=== PATIENT | female | born 1970 | race American Indian/Alaskan Native ===

== ENCOUNTER 2016-09-24 14:32 | Inpatient (IN) | payer OTHER ==
[2016-09-24] MEDS ORDERED: Albuterol-Ipratrop 3 mg / 0.5 (3 ml) UD INH STA (14:57)
--- NOTE | 2016-09-24 15:05 | ED PDOC ---
HPI: SOB/CHF/COPD Time Seen by Provider: 09/24/16 14:45 Chief Complaint (Nursing): Shortness Of Breath Chief Complaint (Provider): Shortness of Breath, Palpitations History Per: Patient History/Exam Limitations: no limitations Onset/Duration Of Symptoms: Mins (45 mins prior to arrival) Current Symptoms Are (Timing): Still Present Associated Symptoms: denies: Fever, Chest Pain Additional Complaint(s): Tera Marquez, a 46 year old female, who has a PMHx of diabetes presents to the ED complaining of shortness of breath and palpitations. The patient states that her symptoms started 45 minutes prior to arrival. In addition to that, the patient reports that she had a bunionectomy 3 weeks ago.The patients left lower extremity is in a cast and is also still swollen since surgery. Denies chest pain, cough and fever. PMD: Aditya Lopes Past Medical History Reviewed: Historical Data, Nursing Documentation, Vital Signs Vital Signs: Last Vital Signs Temp 98.0 F 09/24/16 17:42 Pulse 114 H 09/24/16 17:42 Resp 24 09/24/16 17:42 BP 155/83 H 09/24/16 17:42 Pulse Ox 96 09/24/16 17:59 - Medical History PMH: Diabetes - Surgical History Other surgeries: Bunionectomy - Family History Family History: States: Unknown Family Hx - Social History Current smoker - smoking cessation education provided: No - Home Medications Home Medications: Ambulatory Orders Medication Instructions Recorded Ibuprofen [Motrin Tab] 800 mg PO TID PRN 09/24/16 diaZEpam [Valium] 5 mg PO HS 09/24/16 - Allergies Allergies/Adverse Reactions: Allergies Allergy/AdvReac Type Severity Reaction Status Date / Time No Known Allergies Allergy Verified 09/24/16 14:33 Wells Criteria for PE - Wells Criteria for Pulmonary Embolism Clinical Signs and Symptoms of DVT: Yes P.E is #1 Diagnosis, or Equally Likely: Yes Heart Rate >100: Yes Immobilization at least 3 days;Surgery previous 4 weeks: Yes Previous, objectively diagnosed PE or DVT: No Hemoptysis: No Malignancy w/treatment within 6 months, or palliative: No Total Score: 7.0 Review of Systems ROS Statement: Except As Marked, All Systems Reviewed And Found Negative Constitutional: Negative for: Fever Cardiovascular: Positive for: Palpitations. Negative for: Chest Pain Respiratory: Positive for: Shortness of Breath. Negative for: Cough Physical Exam - Reviewed Nursing Documentation Reviewed: Yes Vital Signs Reviewed: Yes - Physical Exam Appears: Positive for: Non-toxic, No Acute Distress Head Exam: Positive for: ATRAUMATIC, NORMOCEPHALIC Skin: Positive for: Normal Color, Warm, Dry Eye Exam: Positive for: Normal appearance, EOMI, PERRL ENT: Positive for: Normal ENT Inspection Neck: Positive for: Normal, Supple Cardiovascular/Chest: Positive for: Regular Rate, Rhythm, Chest Non Tender. Negative for: Tachycardia Respiratory: Positive for: Normal Breath Sounds. Negative for: Wheezing, Respiratory Distress Gastrointestinal/Abdominal: Positive for: Normal Exam, Soft. Negative for: Tenderness Back: Positive for: Normal Inspection. Negative for: L CVA Tenderness, R CVA Tenderness Extremity: Positive for: Normal ROM, Swelling (Left lower extremity is still swollen since surgery.), Other (Left lower extremity is in a cast.). Negative for: Tenderness, Deformity Neurologic/Psych: Positive for: Alert, Oriented - Laboratory Results Result Diagrams: 09/24/16 15:00 09/24/16 15:00 - ECG Interpretation Of ECG: NSR @ 99, S1Q3T3. O2 Sat by Pulse Oximetry: 96 (RA) Pulse Ox Interpretation: Normal - Radiology X-Ray: Read By Radiologist X-Ray Interpretation: No Acute Disease - CT Scan/US CT chest Other Rad Studies (CT/US): Radiology Report Reviewed (Extensive pulmonary embolic disease/ thrombus. Although there are strands of thrombus the in the proximal main pulmonary arteries the bulk of the emboli reside in lobar and segmental branches with thrombus completely occluding the right lower lobe pulmonary artery. No evidence of pulmonary infarction. Findings highly suggestive of thrombus in the right atrium. If clinically indicated echocardiography would confirm this finding. ) Doppler ultrasound Other Rad Studies (CT/US): Radiology Report Reviewed (Findings consistent with left popliteal DVT. No evidence of right lower extremity DVT.) - Physician Consult Information Time Consulting Physican Contacted: 16:30 Physician Contacted: Arash Greco Outcome Of Conversation: Lovenox, admit to ICU. - Critical Care Total Time (In Min): 30 Medical Decision Making Medical Decision Makin:45 Initial Impression: 46 year old female presenting with chest pain and palpitations. Initial Plan: * CT Ango chest * EKG * CMP * Troponin * Upreg * Udip * CBC * D-dimer * PTT * Prothrombin time * CXR * Glucose, blood, POC * Urinalysis * Reevaluation 16:[address] Mcgee Dopplers ordered. __ Scribe Attestation Documented by Marisela Ventura acting as a scribe for Paula Hoff MD. Provider Attestation All medical record entries made by the Scribe were at my direction and personally dictated by me. I have reviewed the chart and agree that the record accurately reflects my personal performance of the history, physical exam, medical decision making, and the department course for this patient. I have also personally directed, reviewed, and agree with the discharge instructions and disposition. Disposition - Clinical Impression Clinical Impression: Bilateral pulmonary embolism, DVT (deep venous thrombosis) - Patient ED Disposition Is Patient to be Admitted: Yes - Disposition Disposition Time: 16:36 Condition: CRITICAL - Pt Status Changed To: Hospital Disposition Of: Inpatient - Admit Certification Admit to Inpatient:: After my assessment, the patient will require hospitalization for at least two midnights. This is because of the severity of symptoms shown, intensity of services needed, and/or the medical risk in this patient being treated as an outpatient. - POA Present On Arrival: Deep Vein Thrombosis / PE
[2016-09-24] MEDS ORDERED: Albuterol-Ipratrop 3 mg / 0.5 (3 ml) UD ONE (15:07)
[2016-09-24 15:13] LABS: BASO # 0.1 K/uL (0.0-0.2); BASO % 0.8 % (0.0-2.0); EOS # 0.4 K/uL (0.0-0.7); EOS % 3.8 % (0.0-4.0); HEMATOCRIT 39.8 % (34.0-47.0); LYMPH # 2.8 K/uL (1.0-4.3); LYMPH % 30.2 % (20.0-40.0); MEAN CORPUSCULAR HEMOGLOBIN 28.5 pg (27.0-31.0); MEAN CORPUSCULAR HGB CONC 33.6 g/dL (33.0-37.0); MEAN PLATELET VOLUME 9.1 fl (7.2-11.7); MONO # 0.6 K/uL (0.0-0.8); MONO % 6.9 % (0.0-10.0); NEUT # 5.4 K/uL (1.8-7.0); NEUT % 58.3 % (50.0-75.0); NRBC % 0.1 % (0.0-0.0); RED CELL DISTRIBUTION WIDTH 13.3 % (11.5-14.5); WHITE BLOOD COUNT 9.3 K/uL (4.8-10.8)
[2016-09-24 15:19] LABS: ALB/GLOB RATIO 1.1 (1.0-2.1); ALKALINE PHOSPHATASE 96 U/L (38-126); ALT/SGPT 37 U/L (9-52); AST/SGOT 32 U/L (14-36); BILIRUBIN,TOTAL 0.4 mg/dl (0.2-1.3); BLOOD UREA NITROGEN 7 mg/dl (7-17); CALCIUM 9.9 mg/dL (8.4-10.2); CARBON DIOXIDE 27 mmol/L (22-30); CHLORIDE 102 mmol/L (98-107); GFR AFRICAN-AMERICAN > 60; GLUCOSE,RANDOM 239 mg/dL (65-105); POTASSIUM 3.8 MMOL/L (3.6-5.0); SODIUM 141 mmol/l (132-148); TOTAL PROTEIN 8.4 G/DL (6.3-8.2)
[2016-09-24 15:44] LABS: PARTIAL THROMBOPLASTIN TIME 22.9 SECONDS (23.3-32.5)
[2016-09-24] MEDS ORDERED: Sodium Chloride 0.9% 50 ML IV ONE (15:55)
[2016-09-24] MEDS ORDERED: Iodixanol 320 MG/ML 100 ML BOTTLE IV ONE (15:55)
[2016-09-24] MEDS ORDERED: Enoxaparin 120 mg Syringe SC STA (16:31)
--- NOTE | 2016-09-24 16:36 | CT ---
PROCEDURE: CT Chest with contrast (Pulmonary Angiogram) HISTORY: CP, palpitations, 3 weeks s/p bunion surgery COMPARISON: None available. TECHNIQUE: Axial computed tomography images were obtained of the chest in the pulmonary arterial phase of enhancement. Coronal and sagittal reformatted images were created and reviewed. Intravenous contrast dose: 95 cc Visipaque 320 Mean Hounsfield unit values in the main pulmonary artery: 281.62 Radiation dose: Total exam DLP = 366.46 mGy-cm. This CT exam was performed using one or more of the following dose reduction techniques: Automated exposure control, adjustment of the mA and/or kV according to patient size, and/or use of iterative reconstruction technique. FINDINGS: PULMONARY ARTERIES: The bulk of the pulmonary emboli identified on the current study reside in the periphery of both main pulmonary arteries as well as lobar and segmental branches. Thrombus completely occludes right lower lobe pulmonary artery. Segmental thrombus in the left lower lobe pulmonary artery noted. Additional pulmonary embolism identified in the right upper and right middle lobe segmental pulmonary arteries as well as upper lobe and lingula are branches on the left Main pulmonary artery measures 2.9 cm. AORTA: No acute findings. No thoracic aortic aneurysm. LUNGS: No evidence of pulmonary infarction despite the extent of occlusive and nonocclusive pulmonary artery emboli. PLEURAL SPACES: Unremarkable. No effusion or pneuomothorax. HEART: Unremarkable. No cardiomegaly. No significant pericardial effusion. LYMPH NODES: No lymphadenopathy. BONES, CHEST WALL: Unremarkable. No fracture or destructive lesion OTHER FINDINGS: Unremarkable. IMPRESSION: Extensive pulmonary embolic disease/ thrombus. Although there are strands of thrombus the in the proximal main pulmonary arteries the bulk of the emboli reside in lobar and segmental branches with thrombus completely occluding the right lower lobe pulmonary artery. No evidence of pulmonary infarction. Findings highly suggestive of thrombus in the right atrium. If clinically indicated echocardiography would confirm this finding. Communication of results: Study completed at 16:12. Results discussed verbally at 16:21. I discussed the findings and reviewed the case Dr. Craig Attending physician in the emergency department
[2016-09-24 16:40] LABS: RBC URINE 2 /hpf (0-3); URINE BILIRUBIN NEGATIVE (NEGATIVE); URINE BLOOD NEGATIVE (NEGATIVE); URINE COLOR YELLOW (YELLOW); URINE GLUCOSE (UA) 150 mg/dL (Normal); URINE KETONE NEGATIVE (NEGATIVE); URINE LEUKOCYTE ESTERASE NEG Leu/uL (Negative); URINE PROTEIN 30 mg/dL (NEGATIVE); URINE UROBILINOGEN 0.2-1.0 mg/dL (0.2-1.0); WBC URINE 1 /hpf (0-5)
[2016-09-24 16:42] LABS: URINE BACTERIA FEW (<OCC)
--- NOTE | 2016-09-24 17:19 | RAD ---
HISTORY: SOB COMPARISON: No prior. FINDINGS: LUNGS: No active pulmonary disease. PLEURA: No significant pleural effusion identified, no pneumothorax apparent. CARDIOVASCULAR: Normal. OSSEOUS STRUCTURES: No significant abnormalities. VISUALIZED UPPER ABDOMEN: Normal. OTHER FINDINGS: None. IMPRESSION: No active disease.
--- NOTE | 2016-09-24 17:53 | US ---
PROCEDURE: Bilateral lower extremity venous duplex Doppler. HISTORY: PE COMPARISON: None available. TECHNIQUE: Bilateral common femoral, superficial femoral, popliteal and posterior tibial veins were evaluated. Flow was assessed with color Doppler, compressibility, assessment of phasic flow and augmentation response. FINDINGS: COMMON FEMORAL VEIN: Right CFV: Unremarkable. Left CFV: Unremarkable. SUPERFICIAL FEMORAL VEIN: Right SFV: Unremarkable. Left SFV: Unremarkable. POPLITEAL VEIN: Right Popliteal: Unremarkable. Left Popliteal: Noncompressible left popliteal veins contains filling defects suspicious for DVT. POSTERIOR TIBIAL VEIN: Right PTV: Unremarkable. Left PTV: Unremarkable. OTHER FINDINGS: None. IMPRESSION: Findings consistent with left popliteal DVT. No evidence of right lower extremity DVT.
--- NOTE | 2016-09-24 18:24 | CP.PCM.CON ---
History of Present Illness - History of Present Illness History of Present Illness: 46 year old female with PMHx including diabetes was seen at bedside. Patient states that 3 weeks ago she had left bunion surgery with Dr. Beltrán. She has been ambulating in a CAM walker. She states that she has been short of breath for about a week. She states that her symptoms felt like her previous asthma attacks and has been using her inhaler with some relief. Patient spoke to Dr. Beltrán today who sent her to the ED for evaluation. She admits to shortness of breath, but denies any left calf tenderness. denies n/v/f/c. Past Patient History - Past Social History Smoking Status: Never Smoked - CARDIAC Hx Cardiac Disorders: No - PULMONARY Hx Respiratory Disorders: Yes - NEUROLOGICAL Hx Neurological Disorder: No - HEENT Hx HEENT Problems: Yes - RENAL Hx Chronic Kidney Disease: No - ENDOCRINE/METABOLIC Hx Endocrine Disorders: Yes - HEMATOLOGICAL/ONCOLOGICAL Hx Blood Disorders: No - INTEGUMENTARY Hx Dermatological Problems: No - MUSCULOSKELETAL/RHEUMATOLOGICAL Hx Musculoskeletal Disorders: No - GASTROINTESTINAL Hx Gastrointestinal Disorders: No - GENITOURINARY/GYNECOLOGICAL Hx Genitourinary Disorders: No - PSYCHIATRIC Hx Psychophysiologic Disorder: No - SURGICAL HISTORY Hx Surgeries: Yes Hx Cholecystectomy: Yes Hx Orthopedic Surgery: Yes (RIGHT KNEE ACL REPAIR X 2) Other/Comment: BUNIONECTOMY. 3 SINUS SX Meds Allergies/Adverse Reactions: Allergies Allergy/AdvReac Type Severity Reaction Status Date / Time No Known Allergies Allergy Verified 09/24/16 14:33 Physical Exam - Constitutional Appears: Non-toxic - Extremities Exam Additional comments: dressing clean, dry, intact to LLE PT pulse palpable b/l CFT < 3 seconds to all digits - Neurological Exam Neurological exam: Alert, Oriented x3 - Psychiatric Exam Psychiatric exam: Normal Affect, Normal Mood Results - Vital Signs Recent Vital Signs: Last Vital Signs Temp 98.0 F 09/24/16 17:42 Pulse 114 H 09/24/16 17:42 Resp 24 09/24/16 17:42 BP 155/83 H 09/24/16 17:42 Pulse Ox 96 09/24/16 18:01 - Labs Result Diagrams: 09/24/16 15:00 09/24/16 15:00 Assessment & Plan - Assessment and Plan (Free Text) Assessment: 46 year old female 3 weeks s/p left bunion surgery with PE and L poplietal DVT Plan: patient examined and evaluated discussed with attending Dr. Beltrán CT reviewed- PE noted LE US reviewed- L popliteal DVT noted dressing left c/d/i to [facility] podiatry will continue to follow patient while in house
[2016-09-24 18:42] VITALS: BMI 41.3
--- NOTE | 2016-09-24 19:36 | CP.CCUPN ---
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 Initial symptoms occurred 1 week ago and patient felt it may be due to an asthma exacerbation and found relief with inhaler use. Denies any h/o exertional chest discomfort or exertional dyspnea. PMH included 5 yr h/o diet-controlled DM II and HTN. But admits to being noncompliant and has been on Losartan in the past. She denies any recent URI, cough, fevers or chills, sweats, palpitations, dizziness. Recent meds only include Valium and Motrin for foot discomfort. Afebrile, 155/83, HR 114, RR 24, 96% SPO2 on nasal cannula ROS: as above, no other pertinent negs or positives on 10 system review. 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 Otherwise, all nursing and historical notes reviewed, no new pertinent data relevant to current problems. No other distress noted: EXAM- HEENT: no icterus, pupils equal and reactive NECK: no visible JVD, supple, carotids equal upstroke bilat/no bruits CHEST: decreased BS bases, no wheezes HEART: regular, distant, S1S2, no murmur audible, no rubs. ABD: soft, no increased distention, no focal tenderness, no HSM. BS hypoactive , EXT: LLE unable to be assesses, Left foot in boot dressing, no cords or calf tenderness on R. Distal Pulses intact bilat. NEURO: no gross focal motor deficits SKIN: no rashes LABS: WBC= 9.3 HGB= 13.4 PLTs= 292K INR= 1.00, PTT = 22.9 DDimer = 5.95 Na= 141 K= 3.8 HCO3= 27 BUN/Cr= 7/0.7 BS= 239 Trop neg at 0.[address] results reviewed and discussed with ER MD. EKG: sinus 99/min, poor R wave progression anteriorly. MAJOR PROBLEMS NOW: 1. Sub-Acute Pulmonary Thromboembolism 2. s/p Left Bunion Surgery 3. Uncontrolled Hypertension, r/o Anxiety Disorder 4. DM II 5. Morbid Obesity PLAN: 1. Probable acute event occurred one week ago and now having recurrent embolic event, exacerbated by activity. Initial Trops negative. Start Therapeutic Lovenox, no need for IV heparin or thrombolytics, nor any consideration for clot extraction. Hemodynamics and oxygenation wholly stable and acceptable. 2. Monitor BP trends, patient admits she is anxious and may be stress- related. Similar situation relates to episodes of hyperglycemia. Monitor ac hs blood glucose, maintain normoglycemia s tolerated. Will treat for any sustained MAP elevations above 110. 3. Oral anticoagulation in AM as per PMD. 4. Podiatry f/u. 5. Albuterol inh prn.
[2016-09-24] MEDS ORDERED: Alum-Mag Hydrox-Simethicone Susp (30 mL) PO PRN (19:37)
[2016-09-24] MEDS ORDERED: Albuterol-Ipratrop 3 mg / 0.5 (3 ml) UD INH PRN (19:37)
[2016-09-24] MEDS: Pantoprazole 40 mg EC Tab PO SCH (20:00)
[2016-09-24] MEDS: Enoxaparin 120 mg Syringe SC SCH (21:21)
[2016-09-25 05:36] LABS: BASO # 0.1 K/uL (0.0-0.2); EOS # 0.4 K/uL (0.0-0.7); EOS % 4.1 % (0.0-4.0); HEMATOCRIT 39.6 % (34.0-47.0); LYMPH # 3.4 K/uL (1.0-4.3); LYMPH % 38.9 % (20.0-40.0); MEAN CORPUSCULAR HEMOGLOBIN 28.3 pg (27.0-31.0); MEAN CORPUSCULAR HGB CONC 32.9 g/dL (33.0-37.0); MEAN PLATELET VOLUME 8.7 fl (7.2-11.7); MONO # 0.7 K/uL (0.0-0.8); MONO % 7.8 % (0.0-10.0); NEUT # 4.2 K/uL (1.8-7.0); NEUT % 48.2 % (50.0-75.0); RED CELL DISTRIBUTION WIDTH 12.9 % (11.5-14.5); WHITE BLOOD COUNT 8.7 K/uL (4.8-10.8)
[2016-09-25 05:40] LABS: ALB/GLOB RATIO 1.1 (1.0-2.1); ALKALINE PHOSPHATASE 93 U/L (38-126); ALT/SGPT 34 U/L (9-52); AST/SGOT 28 U/L (14-36); BILIRUBIN,TOTAL 0.4 mg/dl (0.2-1.3); BLOOD UREA NITROGEN 7 mg/dl (7-17); CALCIUM 9.9 mg/dL (8.4-10.2); CARBON DIOXIDE 28 mmol/L (22-30); CHLORIDE 104 mmol/L (98-107); CHOLESTEROL 260 mg/dL (0-199); GFR AFRICAN-AMERICAN > 60; GLUCOSE,RANDOM 194 mg/dL (65-105); SODIUM 140 mmol/l (132-148); TOTAL PROTEIN 7.4 G/DL (6.3-8.2)
[2016-09-25 06:06] LABS: PARTIAL THROMBOPLASTIN TIME 32.3 SECONDS (23.3-32.5)
[2016-09-25 06:10] LABS: THYROID STIMULATING HORMONE 3.86 mIU/ML (0.46-4.68)
--- NOTE | 2016-09-25 08:32 | CP.PCM.PN ---
Subjective - Date & Time of Evaluation Date of Evaluation: 09/25/16 Time of Evaluation: 08:30 - Subjective Subjective: 46 year old female seen at bedside 3 weeks s/p left bunion surgery with PE and L poplietal DVT. She admits to shortness of breath, and mild chest tightness, but denies any other acute event overnight. She denies any left calf tenderness or pain in her lower extremities. denies n/v/f/c. Objective - Vital Signs/Intake and Output Vital Signs (last 24 hours): Temp Pulse Resp BP Pulse Ox 98.2 F 83 19 125/74 94 L 09/25/16 08:00 09/25/16 08:00 09/25/16 08:00 09/25/16 08:00 09/25/16 08:00 Intake and Output: 09/25/16 09/25/16 06:59 18:59 Intake Total 400 Output Total 900 Balance -500 - Medications Medications: Current Medications Al Hydrox/Mg Hydrox/Simethicone (Maalox Plus 30 Ml) 30 ml PO Q6 PRN PRN Reason: Indigestion / Heartburn Last Admin: 09/24/16 21:21 Dose: 30 ml Albuterol/Ipratropium (Duoneb 3 Mg/0.5 Mg (3 Ml) Ud) 3 ml INH RQ4 PRN PRN Reason: Shortness of Breath Diazepam (Valium) 5 mg PO HS PRN PRN Reason: Anxiety Last Admin: 09/24/16 21:10 Dose: 5 mg Enoxaparin Sodium (Lovenox) 120 mg SC Q12 YESY PRN Reason: Protocol Last Admin: 09/24/16 21:21 Dose: 120 mg Ibuprofen (Motrin Tab) 800 mg PO Q8 PRN PRN Reason: Pain, moderate (4-7) Pantoprazole Sodium (Protonix Ec Tab) 40 mg PO DAILY YESY Last Admin: 09/24/16 20:00 Dose: 40 mg Zolpidem Tartrate (Ambien) 5 mg PO HS PRN PRN Reason: Sleep Last Admin: 09/24/16 23:39 Dose: 5 mg - Labs Labs: 09/25/16 05:00 09/25/16 05:00 PT 11.5 SECONDS (9.6-11.2) H 09/25/16 05:00 INR 1.11 (0.92-1.08) H 09/25/16 05:00 APTT 32.3 SECONDS (23.3-32.5) D 09/25/16 05:00 - Constitutional Appears: Well, Non-toxic, No Acute Distress - Extremities Exam Additional comments: dressing clean, dry, intact to LLE PT pulse palpable b/l CFT < 3 seconds to all digits - Neurological Exam Neurological Exam: Alert, Awake, Oriented x3 - Psychiatric Exam Psychiatric exam: Normal Affect, Normal Mood Assessment and Plan - Assessment and Plan (Free Text) Assessment: 46 year old female 3 weeks s/p left bunion surgery with PE and L poplietal DVT Plan: patient examined and evaluated discussed with attending Dr. Beltrán CT reviewed- PE noted LE US reviewed- L popliteal DVT noted dressing left c/d/i to [facility] podiatry will continue to follow patient while in house
[2016-09-25] MEDS: Pantoprazole 40 mg EC Tab PO SCH (09:00)
[2016-09-25] MEDS: Enoxaparin 120 mg Syringe SC SCH ×2 (09:00→21:55)
--- NOTE | 2016-09-25 10:18 | CARD ---
APPROVED REPORT EKG Measurement Heart [id number] <Conclusion> Normal sinus rhythm Poor progression of R waves Abnormal ECG
--- NOTE | 2016-09-25 11:39 | CP.CCUPN ---
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 Afebrile, 125/73, HR 84, RR 19, 94% SPO2 on nasal cannula ROS: as above, no other pertinent negs or positives on 10 system review. 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 Otherwise, all nursing and historical notes reviewed, no new pertinent data relevant to current problems. No other distress noted: EXAM- HEENT: no icterus, pupils equal and reactive NECK: no visible JVD, supple, carotids equal upstroke bilat/no bruits CHEST: decreased BS bases, no wheezes HEART: regular, distant, S1S2, no murmur audible, no rubs. ABD: soft, no increased distention, no focal tenderness, no HSM. BS hypoactive , EXT: LLE unable to be assesses, Left foot in boot dressing, no cords or calf tenderness on R. Distal Pulses intact bilat. NEURO: no gross focal motor deficits SKIN: no rashes LABS: WBC= 8.7 HGB= 13.0 PLTs= 288K INR= 1.11, PTT = 32.3 DDimer = 5.95 Na= 140 K= 4.0 HCO3= 28 BUN/Cr= 7/0.7 BS= 194 Trop #1 neg at 0.11 Trop #2 pos= 0.33 MAJOR PROBLEMS NOW: 1. Sub-Acute / Acute Pulmonary Thromboembolism 2. s/p Left Bunion Surgery 3. Uncontrolled Hypertension, r/o Anxiety Disorder 4. DM II 5. Morbid Obesity PLAN: 1. Urgent ECHO now as per Cardio to assess for any RV abnormalities which would change mgmt with consideration for thrombolytics. 2. Continue Lovenox Q12H for now. 3. BP levels have improved without acute need for antihypertensive therapy mgmt. 4. If no thrombolytics today as per Cardio, would start PO AC meds and transfer to stepdown bed.
--- NOTE | 2016-09-25 14:04 | CP.PCM.CON ---
History of Present Illness - History of Present Illness History of Present Illness: Pulmonary consult for PE. 46 y/o F, came to [facility] on 09/24/16 to be evaluated for acute onset of moderate to severe SOB on DOA, associated to L side chest tightness and palpitations. Pt using nebulizer inhaler at home with mild relief. Worsening symptoms: SOB with exertion and at rest. Hx of Bunionectomy surgery [address] Johnson, Pt mentioned that after surgery has been active and non-sedentary. Aggravating factor; increasing symptoms with movements, Pt in non compliance with meds. Pt denied: Fever, chills, cough, CP, back pain, n/v/d, previous Hx of PE or DVT. sick contact, recent travel. PMHx: Asthma, DMII, HTN, Hypercholesterolemia, S/P L Bunion Surgery one week ago. Chest CT showed: Extensive Pulmonary embolism b/L, extending into the lobar branches, thrombus occluding RLL PA. Ext U/S: Left Popliteal DVT. EKG: Normal sinus rhythm. Review of Systems - Constitutional Constitutional: Other (negative) - EENT Eyes: Other (negative) Ears: Other (negative) Nose/Mouth/Throat: Other (negative) - Cardiovascular Cardiovascular: Other (negative) - Respiratory Respiratory: Dyspnea, Dyspnea on Exertion - Gastrointestinal Gastrointestinal: Other (negative) - Genitourinary Genitourinary: Other (negative) - Musculoskeletal Musculoskeletal: Other (negative) - Integumentary Integumentary: Swelling (L foot) - Neurological Neurological: Other (negative) - Psychiatric Psychiatric: Other (negative) - Endocrine Endocrine: Other (overweight) - Hematologic/Lymphatic Hematologic: Other (negative) Past Patient History - Past Medical History & Family History Past Medical History?: Yes Pertinent Family History: Hx of DMII - Past Social History Smoking Status: Never Smoked Alcohol: Occasional Drugs: Denies Home Situation {Lives}: Alone - CARDIAC Hx Cardiac Disorders: Yes Hx Hypercholesterolemia: Yes Hx Hypertension: Yes - PULMONARY Hx Respiratory Disorders: Yes Hx Asthma: Yes - NEUROLOGICAL Hx Neurological Disorder: No - HEENT Hx HEENT Problems: Yes - RENAL Hx Chronic Kidney Disease: No - ENDOCRINE/METABOLIC Hx Endocrine Disorders: Yes Hx Diabetes Mellitus Type 2: Yes - HEMATOLOGICAL/ONCOLOGICAL Hx Blood Disorders: No - INTEGUMENTARY Hx Dermatological Problems: No - MUSCULOSKELETAL/RHEUMATOLOGICAL Hx Musculoskeletal Disorders: No - GASTROINTESTINAL Hx Gastrointestinal Disorders: No - GENITOURINARY/GYNECOLOGICAL Hx Genitourinary Disorders: No - PSYCHIATRIC Hx Psychophysiologic Disorder: No - SURGICAL HISTORY Hx Surgeries: Yes Hx Cholecystectomy: Yes Hx Orthopedic Surgery: Yes (RIGHT KNEE ACL REPAIR X 2) Other/Comment: BUNIONECTOMY. 3 SINUS SX - ANESTHESIA Hx Anesthesia: Yes Hx Anesthesia Reactions: No Meds Allergies/Adverse Reactions: Allergies Allergy/AdvReac Type Severity Reaction Status Date / Time No Known Allergies Allergy Verified 09/24/16 14:33 - Medications Medications: Current Medications Al Hydrox/Mg Hydrox/Simethicone (Maalox Plus 30 Ml) 30 ml PO Q6 PRN PRN Reason: Indigestion / Heartburn Last Admin: 09/24/16 21:21 Dose: 30 ml Albuterol/Ipratropium (Duoneb 3 Mg/0.5 Mg (3 Ml) Ud) 3 ml INH RQ4 PRN PRN Reason: Shortness of Breath Last Admin: 09/25/16 11:25 Dose: 3 ml Diazepam (Valium) 5 mg PO HS PRN PRN Reason: Anxiety Last Admin: 09/24/16 21:10 Dose: 5 mg Enoxaparin Sodium (Lovenox) 120 mg SC Q12 YESY PRN Reason: Protocol Last Admin: 09/25/16 09:00 Dose: 120 mg Ibuprofen (Motrin Tab) 800 mg PO Q8 PRN PRN Reason: Pain, moderate (4-7) Pantoprazole Sodium (Protonix Ec Tab) 40 mg PO DAILY YESY Last Admin: 09/25/16 09:00 Dose: 40 mg Zolpidem Tartrate (Ambien) 5 mg PO HS PRN PRN Reason: Sleep Last Admin: 09/24/16 23:39 Dose: 5 mg Physical Exam - Constitutional Appears: No Acute Distress - Head Exam Head Exam: NORMAL INSPECTION - Eye Exam Eye Exam: PERRL - ENT Exam ENT Exam: Normal Oropharynx - Neck Exam Neck exam: Positive for: Normal Inspection - Respiratory Exam Respiratory Exam: NORMAL BREATHING PATTERN - Cardiovascular Exam Cardiovascular Exam: REGULAR RHYTHM - GI/Abdominal Exam GI & Abdominal Exam: Normal Bowel Sounds, Soft - Extremities Exam Additional comments: Dressing Left foot. - Back Exam Back exam: NORMAL INSPECTION - Neurological Exam Neurological exam: Alert, Oriented x3 - Psychiatric Exam Psychiatric exam: Normal Mood - Skin Skin Exam: Warm Results - Vital Signs Recent Vital Signs: Last Vital Signs Temp 98.1 F 09/25/16 12:00 Pulse 82 09/25/16 12:00 Resp 33 H 09/25/16 12:00 BP 124/77 09/25/16 12:00 Pulse Ox 96 09/25/16 12:00 reviewed Javier - Labs Result Diagrams: 09/28/16 06:30 09/28/16 06:30 Labs: Laboratory Results - last 24 hr 09/25/16 09/25/16 09/25/16 05:00 05:00 05:00 WBC 8.7 RBC 4.61 Hgb 13.0 Hct 39.6 MCV 86.0 MCH 28.3 MCHC 32.9 L RDW 12.9 Plt Count 288 MPV 8.7 Neut % (Auto) 48.2 L Lymph % (Auto) 38.9 [place] % (Auto) 7.8 Eos % (Auto) 4.1 H Baso % (Auto) 1.0 Neut # 4.2 Lymph # 3.4 [place] # 0.7 Eos # 0.4 Baso # 0.1 PT 11.5 H INR 1.11 H APTT 32.3 D Sodium 140 Potassium 4.0 Chloride 104 Carbon Dioxide 28 Anion Gap 12 BUN 7 Creatinine 0.7 Est GFR ( Amer) > 60 Est GFR (Non-Af Amer) > 60 Random Glucose 194 H Hemoglobin A1c Lactic Acid Calcium 9.9 Total Bilirubin 0.4 AST 28 ALT 34 Alkaline Phosphatase 93 Troponin I 0.3340 H* Total Protein 7.4 Albumin 3.8 Globulin 3.6 Albumin/Globulin Ratio 1.1 Triglycerides 183 H Cholesterol 260 H LDL Cholesterol Direct 172 H HDL Cholesterol 44 TSH 3rd Generation 3.86 09/25/16 09/25/16 05:00 05:00 WBC RBC Hgb Hct MCV MCH MCHC RDW Plt Count MPV Neut % (Auto) Lymph % (Auto) [place] % (Auto) Eos % (Auto) Baso % (Auto) Neut # Lymph # [place] # Eos # Baso # PT INR APTT Sodium Potassium Chloride Carbon Dioxide Anion Gap BUN Creatinine Est GFR ( Amer) Est GFR (Non-Af Amer) Random Glucose Hemoglobin A1c 10.3 H Lactic Acid 1.8 Calcium Total Bilirubin AST ALT Alkaline Phosphatase Troponin I Total Protein Albumin Globulin Albumin/Globulin Ratio Triglycerides Cholesterol LDL Cholesterol Direct HDL Cholesterol TSH 3rd Generation reviewed J.[email or web address] - EKG Data EKG comments: reviewed J.[email or web address] - Imaging and Cardiology Chest x-ray Status: Report reviewed by me (Javier) CT scan - chest Status: Report reviewed by me (Javier) Venous US Status: Report reviewed by me (Javier) Assessment & Plan (1) Bilateral pulmonary embolism Status: Acute Priority: High Comment: B/L P/E, thrombus occluding RLL PA (2) Deep venous thrombosis of left popliteal vein Status: Acute (3) S/P bunionectomy Status: Acute Priority: High (4) Asthma Status: Chronic Priority: Medium - Assessment and Plan (Free Text) Plan: Agree with management, NC 2 L/M, JESSEE Garcia Lovenox , begin Eliquis. f/u Echo. ICU time: 65 minutes. - Date & Time Date: 09/25/16 Time: 10:50
--- NOTE | 2016-09-25 14:26 | CP.PCM.HP ---
History of Present Illness - History of Present Illness History of Present Illness: 46 female with PMHx of diet-controlled DM II and HTN presented to ED due to SOB and palpitations. Patient has recent history of left bunion surgery 3 weeks ago though has been active and non sedentary. Denied chest pain, cough and fever. Patient was found to have extensive pulmonary embolic disease/thrombus via CTA. Patient denies history of blood coagulopathy in family. Patient was seen and examined this morning. States improvement of dyspnea and palpitations have resolved. No other events overnight. Present on Admission - Present on Admission Any Indicators Present on Admission: No Review of Systems - Review of Systems All systems: reviewed and no additional remarkable complaints except (mentioned in HPI) Past Patient History - Past Medical History & Family History Past Medical History?: Yes - Past Social History Smoking Status: Never Smoked - CARDIAC Hx Cardiac Disorders: No - PULMONARY Hx Respiratory Disorders: Yes - NEUROLOGICAL Hx Neurological Disorder: No - HEENT Hx HEENT Problems: Yes - RENAL Hx Chronic Kidney Disease: No - ENDOCRINE/METABOLIC Hx Endocrine Disorders: Yes - HEMATOLOGICAL/ONCOLOGICAL Hx Blood Disorders: No - INTEGUMENTARY Hx Dermatological Problems: No - MUSCULOSKELETAL/RHEUMATOLOGICAL Hx Musculoskeletal Disorders: No - GASTROINTESTINAL Hx Gastrointestinal Disorders: No - GENITOURINARY/GYNECOLOGICAL Hx Genitourinary Disorders: No - PSYCHIATRIC Hx Psychophysiologic Disorder: No - SURGICAL HISTORY Hx Surgeries: Yes Hx Cholecystectomy: Yes Hx Orthopedic Surgery: Yes (RIGHT KNEE ACL REPAIR X 2) Other/Comment: BUNIONECTOMY. 3 SINUS SX - ANESTHESIA Hx Anesthesia: Yes Hx Anesthesia Reactions: No Meds Allergies/Adverse Reactions: Allergies Allergy/AdvReac Type Severity Reaction Status Date / Time No Known Allergies Allergy Verified 09/24/16 14:33 Physical Exam - Constitutional Appears: Well, Non-toxic, No Acute Distress - Head Exam Head Exam: ATRAUMATIC, NORMAL INSPECTION, NORMOCEPHALIC - Eye Exam Eye Exam: EOMI, Normal appearance - ENT Exam ENT Exam: Mucous Membranes Moist, Normal Exam - Neck Exam Neck exam: Positive for: Normal Inspection - Respiratory Exam Respiratory Exam: Decreased Breath Sounds (bilateral bases), Clear to Auscultation Bilateral, NORMAL BREATHING PATTERN - Cardiovascular Exam Cardiovascular Exam: REGULAR RHYTHM, RRR, +S1, +S2 - GI/Abdominal Exam GI & Abdominal Exam: Normal Bowel Sounds, Soft. absent: Tenderness Additional comments: obese - Extremities Exam Extremities exam: Positive for: normal inspection (left foot with boot dressing from bunionectomy, cdi). Negative for: calf tenderness, tenderness - Neurological Exam Neurological exam: Alert, Oriented x3 - Psychiatric Exam Psychiatric exam: Normal Affect, Normal Mood - Skin Skin Exam: Dry, Intact, Normal Color, Warm Results - Vital Signs Recent Vital Signs: Last Vital Signs Temp 98.1 F 09/25/16 12:00 Pulse 82 09/25/16 12:00 Resp 33 H 09/25/16 12:00 BP 124/77 09/25/16 12:00 Pulse Ox 96 09/25/16 12:00 - Labs Result Diagrams: 09/25/16 05:00 09/25/16 05:00 Labs: Laboratory Results - last 24 hr 09/25/16 09/25/16 09/25/16 05:00 05:00 05:00 WBC 8.7 RBC 4.61 Hgb 13.0 Hct 39.6 MCV 86.0 MCH 28.3 MCHC 32.9 L RDW 12.9 Plt Count 288 MPV 8.7 Neut % (Auto) 48.2 L Lymph % (Auto) 38.9 [place] % (Auto) 7.8 Eos % (Auto) 4.1 H Baso % (Auto) 1.0 Neut # 4.2 Lymph # 3.4 [place] # 0.7 Eos # 0.4 Baso # 0.1 PT 11.5 H INR 1.11 H APTT 32.3 D Sodium 140 Potassium 4.0 Chloride 104 Carbon Dioxide 28 Anion Gap 12 BUN 7 Creatinine 0.7 Est GFR ( Amer) > 60 Est GFR (Non-Af Amer) > 60 Random Glucose 194 H Hemoglobin A1c Lactic Acid Calcium 9.9 Total Bilirubin 0.4 AST 28 ALT 34 Alkaline Phosphatase 93 Troponin I 0.3340 H* Total Protein 7.4 Albumin 3.8 Globulin 3.6 Albumin/Globulin Ratio 1.1 Triglycerides 183 H Cholesterol 260 H LDL Cholesterol Direct 172 H HDL Cholesterol 44 TSH 3rd Generation 3.86 09/25/16 09/25/16 05:00 05:00 WBC RBC Hgb Hct MCV MCH MCHC RDW Plt Count MPV Neut % (Auto) Lymph % (Auto) [place] % (Auto) Eos % (Auto) Baso % (Auto) Neut # Lymph # [place] # Eos # Baso # PT INR APTT Sodium Potassium Chloride Carbon Dioxide Anion Gap BUN Creatinine Est GFR ( Amer) Est GFR (Non-Af Amer) Random Glucose Hemoglobin A1c 10.3 H Lactic Acid 1.8 Calcium Total Bilirubin AST ALT Alkaline Phosphatase Troponin I Total Protein Albumin Globulin Albumin/Globulin Ratio Triglycerides Cholesterol LDL Cholesterol Direct HDL Cholesterol TSH 3rd Generation Assessment & Plan (1) Bilateral pulmonary embolism Assessment and Plan: Symptoms improving. Monitored in ICU c/w Lovenox treatment dose Cardiology on board, appreciate input (recommends urgent ECHO) Positive troponins Pulmonary on board, appreciate input Management per senior interactive developer, appreciate input Patient will need PO anti-coagulation in future Status: Acute (2) DVT (deep venous thrombosis) Assessment and Plan: Will obtain genetic studies at this time, patient did have surgery 3 wks ago though states was not sedentary Status: Acute (3) S/P bunionectomy Assessment and Plan: dressing CDI s/p 3 wks ago Podiatry consulted, appreciate recommendations Status: Acute (4) Diabetes type 2, uncontrolled Assessment and Plan: Not on meds, Serum Glucose elevated, pending HgbA1c Diabetic diet Status: Acute
--- NOTE | 2016-09-25 14:44 | CP.PCM.CON ---
History of Present Illness - History of Present Illness History of Present Illness: I was asked to see patient by Dr. Moreno. Patient is a 46 year old female with a PMH HTN, hypercholesterolemia, who presents with dyspnea. The patient had L bunion surgery about 3 weeks ago, and has not been fully mobile. The patient developed dyspnea about one week ago which was progressive. She was found to have a L popliteal vein DVT. The patient was also found to have a saddle embolus and bilateral PE. She was admitted to the ICU and started on anticaogulant therapy. The patient ws evaluated this morning, and is asymptomatic. She denies chest pain or dyspnea, and is saturating normally on room air. Review of Systems - Constitutional Constitutional: absent: As Per HPI, Anorexia, Chills, Daytime Sleepiness, Excessive Sweating, Fatigue, Fever, Frequent Falls, Headache, Increased Appetite , Lethargy, Malaise, Night Sweats, Snoring, Sleep Apnea, Weight Gain, Weight Loss, Weakness, Other - EENT Eyes: absent: As Per HPI, Blind Spots, Blurred Vision, Change in Vision, Decreased Night Vision, Diplopia, Discharge, Dry Eye, Exophthalmos, Floaters, Irritation, Itchy Eyes, Loss of Peripheral Vision, Pain, Photophobia, Requires Corrective Lenses, Sees Flashes, Spots in Vision, Tunnel Vision, Other Visual Disturbances, Loss of Vision, Other Ears: absent: As Per HPI, Decreased Hearing, Ear Discharge, Ear Pain, Tinnitus, Abnormal Hearing, Disequilibrium, Dizziness, Other Nose/Mouth/Throat: absent: As Per HPI, Epistaxis, Nasal Congestion, Nasal Discharge, Nasal Obstruction, Nasal Trauma, Nose Pain, Post Nasal Drip, Sinus Pain, Sinus Pressure, Bleeding Gums, Change in Voice, Dental Pain, Dry Mouth, Dysphagia, Halitosis, Hoarsness, Lip Swelling, Mouth Lesions, Mouth Pain, Odynophagia, Sore Throat, Throat Swelling, Tongue Swelling, Facial Pain, Neck Pain, Neck Mass, Other - Cardiovascular Cardiovascular: absent: As Per HPI, Acrocyanosis, Chest Pain, Chest Pain at Rest , Chest Pain with Activity, Claudication, Diaphoresis, Dyspnea, Dyspnea on Exertion, Edema, Irregular Heart Rhythm, Pain Radiating to Arm/Neck/Jaw, Leg Edema, Leg Ulcers, Lightheadedness, Orthopnea, Palpitations, Paroxysmal Nocturnal Dyspnea, Pedal Edema, Radiating Pain, Rapid Heart Rate, Slow Heart Rate, Syncope, Other - Respiratory Respiratory: absent: As Per HPI, Cough, Dyspnea, Hemoptysis, Dyspnea on Exertion , Wheezing, Snoring, Stridor, Pain on Inspiration, Chest Congestion, Excessive Mucous Production, Change in Mucous Color, Pain with Coughing, Other - Gastrointestinal Gastrointestinal: absent: As Per HPI, Abdominal Pain, Belching, Bloating, Change in Bowel Habits, Change in Stool Character, Coffee Ground Emesis, Constipation, Cramping, Diarrhea, Dyspepsia, Dysphagia, Early Satiety, Excessive Flatus, Fecal Incontinence, Heartburn, Hematemesis, Hematochezia, Loose Stools, Melena, Nausea, Odynophagia, Temesmus, Vomiting, Other - Genitourinary Genitourinary: absent: As Per HPI, Change in Urinary Stream, Difficulty Urinating, Dysuria, Flank Pain, Hematuria, Pyuria, Nocturia, Urinary Incontinence, Urinary Frequency, Urinary Hesitance, Urinary Urgency, Voiding Freq/Small Amts, Freq UTI, Hx Renal/Bladder Calculi, Hx /Renal Surgery, Bladder Distension, Other - Musculoskeletal Musculoskeletal: absent: As Per HPI, Abnormal Gait, Arthralgias, Atrophy, Back Pain, Deformity, Joint Swelling, Limited Range of Motion, Loss of Height, Muscle Cramps, Muscle Weakness, Myalgias, Neck Pain, Numbness, Radiating Pain into Limb, Stiffness, Tingling, Other - Integumentary Integumentary: absent: As Per HPI, Acne, Alopecia, Bleeding Lesions, Change in Hair, Change in Nails, Change in Pigmentation, Changing Lesions, Dry Skin, Erythema, Furuncle, Hirsutism, Lesions, New Lesions, Non-Healing Lesions, Photosensitivity, Pruritus, Rash, Skin Pain, Skin Ulcer, Sores, Striae, Swelling , Unusual Bruising, Wounds, Jaundice, Other - Neurological Neurological: absent: As Per HPI, Abnormal Gait, Abnormal Hearing, Abnormal Movements, Abnormal Speech, Behavioral Changes, Burning Sensations, Confusion, Convulsions, Disequilibrium, Dizziness, Numbness, Focal Weakness, Frequent Falls , Headaches, Lack of Coordination, Loss of Vision, Memory Loss, Paresthesias, Radicular Pain, Restless Legs, Sensory Deficit, Syncope, Tingling, Tremor, Vertigo, Weakness, Other Visual Disturbances, Other - Psychiatric Psychiatric: absent: As Per HPI, Abnormal Sleep Pattern, Anhedonia, Anxiety, Auditory Hallucinations, Behavioral Changes, Change in Appetite, Change in Libido, Confusion, Depression, Difficulty Concentrating, Hallucinations, Homicidal Ideation, Hopelessness, Irritability, Memory Loss, Mood Swings, Panic Attacks, Paranoia, Suicidal Ideation, Visual Hallucinations, Tactile Hallucinations, Other - Endocrine Endocrine: absent: As Per HPI, Change in Body Appearance, Change in Libido, Cold Intolorance, Deepening of Voice, Excessive Sweating, Fatigue, Flushing, Heat Intolorance, Increase in Ring/Shoe/Hat Size, Palpitations, Polydipsia, Polyphagia, Polyuria, Other - Hematologic/Lymphatic Hematologic: absent: As Per HPI, Easy Bleeding, Easy Bruising, Lymphadenopathy, Other Past Patient History - Past Medical History & Family History Past Medical History?: Yes - Past Social History Smoking Status: Never Smoked - CARDIAC Hx Cardiac Disorders: No - PULMONARY Hx Respiratory Disorders: Yes - NEUROLOGICAL Hx Neurological Disorder: No - HEENT Hx HEENT Problems: Yes - RENAL Hx Chronic Kidney Disease: No - ENDOCRINE/METABOLIC Hx Endocrine Disorders: Yes - HEMATOLOGICAL/ONCOLOGICAL Hx Blood Disorders: No - INTEGUMENTARY Hx Dermatological Problems: No - MUSCULOSKELETAL/RHEUMATOLOGICAL Hx Musculoskeletal Disorders: No - GASTROINTESTINAL Hx Gastrointestinal Disorders: No - GENITOURINARY/GYNECOLOGICAL Hx Genitourinary Disorders: No - PSYCHIATRIC Hx Psychophysiologic Disorder: No - SURGICAL HISTORY Hx Surgeries: Yes Hx Cholecystectomy: Yes Hx Orthopedic Surgery: Yes (RIGHT KNEE ACL REPAIR X 2) Other/Comment: BUNIONECTOMY. 3 SINUS SX - ANESTHESIA Hx Anesthesia: Yes Hx Anesthesia Reactions: No Meds Allergies/Adverse Reactions: Allergies Allergy/AdvReac Type Severity Reaction Status Date / Time No Known Allergies Allergy Verified 09/24/16 14:33 - Medications Medications: Current Medications Al Hydrox/Mg Hydrox/Simethicone (Maalox Plus 30 Ml) 30 ml PO Q6 PRN PRN Reason: Indigestion / Heartburn Last Admin: 09/24/16 21:21 Dose: 30 ml Albuterol/Ipratropium (Duoneb 3 Mg/0.5 Mg (3 Ml) Ud) 3 ml INH RQ4 PRN PRN Reason: Shortness of Breath Last Admin: 09/25/16 11:25 Dose: 3 ml Diazepam (Valium) 5 mg PO HS PRN PRN Reason: Anxiety Last Admin: 09/24/16 21:10 Dose: 5 mg Enoxaparin Sodium (Lovenox) 120 mg SC Q12 YESY PRN Reason: Protocol Last Admin: 09/25/16 09:00 Dose: 120 mg Ibuprofen (Motrin Tab) 800 mg PO Q8 PRN PRN Reason: Pain, moderate (4-7) Pantoprazole Sodium (Protonix Ec Tab) 40 mg PO DAILY YESY Last Admin: 09/25/16 09:00 Dose: 40 mg Zolpidem Tartrate (Ambien) 5 mg PO HS PRN PRN Reason: Sleep Last Admin: 09/24/16 23:39 Dose: 5 mg Physical Exam - Constitutional Appears: Non-toxic - Head Exam Head Exam: NORMAL INSPECTION - Eye Exam Eye Exam: Normal appearance - ENT Exam ENT Exam: Mucous Membranes Moist - Neck Exam Neck exam: Positive for: Full Rom - Respiratory Exam Respiratory Exam: NORMAL BREATHING PATTERN - Cardiovascular Exam Cardiovascular Exam: REGULAR RHYTHM - GI/Abdominal Exam GI & Abdominal Exam: Normal Bowel Sounds - Rectal Exam Rectal Exam: Deferred - Extremities Exam Extremities exam: Positive for: pedal edema - Back Exam Back exam: NORMAL INSPECTION - Neurological Exam Neurological exam: Alert, Oriented x3 - Psychiatric Exam Psychiatric exam: Normal Affect - Skin Skin Exam: Normal Color Results - Vital Signs Recent Vital Signs: Last Vital Signs Temp 98.1 F 09/25/16 12:00 Pulse 82 09/25/16 12:00 Resp 33 H 09/25/16 12:00 BP 124/77 09/25/16 12:00 Pulse Ox 96 09/25/16 12:00 - Labs Result Diagrams: 09/25/16 05:00 09/25/16 05:00 Labs: Laboratory Results - last 24 hr 09/25/16 09/25/16 09/25/16 05:00 05:00 05:00 WBC 8.7 RBC 4.61 Hgb 13.0 Hct 39.6 MCV 86.0 MCH 28.3 MCHC 32.9 L RDW 12.9 Plt Count 288 MPV 8.7 Neut % (Auto) 48.2 L Lymph % (Auto) 38.9 [place] % (Auto) 7.8 Eos % (Auto) 4.1 H Baso % (Auto) 1.0 Neut # 4.2 Lymph # 3.4 [place] # 0.7 Eos # 0.4 Baso # 0.1 PT 11.5 H INR 1.11 H APTT 32.3 D Sodium 140 Potassium 4.0 Chloride 104 Carbon Dioxide 28 Anion Gap 12 BUN 7 Creatinine 0.7 Est GFR ( Amer) > 60 Est GFR (Non-Af Amer) > 60 Random Glucose 194 H Hemoglobin A1c Lactic Acid Calcium 9.9 Total Bilirubin 0.4 AST 28 ALT 34 Alkaline Phosphatase 93 Troponin I 0.3340 H* Total Protein 7.4 Albumin 3.8 Globulin 3.6 Albumin/Globulin Ratio 1.1 Triglycerides 183 H Cholesterol 260 H LDL Cholesterol Direct 172 H HDL Cholesterol 44 TSH 3rd Generation 3.86 09/25/16 09/25/16 05:00 05:00 WBC RBC Hgb Hct MCV MCH MCHC RDW Plt Count MPV Neut % (Auto) Lymph % (Auto) [place] % (Auto) Eos % (Auto) Baso % (Auto) Neut # Lymph # [place] # Eos # Baso # PT INR APTT Sodium Potassium Chloride Carbon Dioxide Anion Gap BUN Creatinine Est GFR ( Amer) Est GFR (Non-Af Amer) Random Glucose Hemoglobin A1c 10.3 H Lactic Acid 1.8 Calcium Total Bilirubin AST ALT Alkaline Phosphatase Troponin I Total Protein Albumin Globulin Albumin/Globulin Ratio Triglycerides Cholesterol LDL Cholesterol Direct HDL Cholesterol TSH 3rd Generation - EKG Data EKG Interpreted by: Myself EKG shows normal: Sinus rhythm Assessment & Plan (1) HTN (hypertension) Assessment and Plan: aggressive blood pressure management Status: Acute (2) Bilateral pulmonary embolism Assessment and Plan: I have reviewed the echocardiogram. Left ventricular function is normal. The RV is mildly dilated. There is an echodensity in the RV likely community representative of thrombus. The patient is clinically stable. I have discussed options with the patient including medical therapy with NOAC and possible catheter based thrombolysis. Given clinical stability there is likely no clinical gain from catheter based therapy, and large potential for harm. Recommend medical therapy. Status: Acute (3) DVT (deep venous thrombosis) Assessment and Plan: recommend anticaogulation with Eliquis. no inidication for IVC filter. Status: Acute
--- NOTE | 2016-09-25 15:05 | CP.PCM.CON ---
History of Present Illness - History of Present Illness History of Present Illness: IR requested to evaluate Ms. Marquez for catheter directed therapy for her pulmonary embolism. Briefly, Pt is a 46 yo admitted with pulmonary embolism. CT showed saddle embolism extending into the lobar branches. Pt also had an echo that showed RV thrombus. Duplex showed left popliteal DVT. Pt seen in the ICU. She is on therapeutic Lovenox. Pt is very comfortable. Denies any dyspnea, chest discomfort. Her vitals are stable. My opinion: There is little benefit of catheter directed therapy. Pt is clinically stable and there will be no discernable gain in catheter directed therapy to outweigh the risks of the procedure. If Ms. Marquez decompensates, then catheter directed or systemic TPA will be indicated if there is RV strain. Recommend continue the current therapy. Pt may benefit from a IVC filter. RV thrombus: thrombus was seen in the RV during echo. This might have moved out of the RV into the pulmonary artery. A repeat echo will be useful to document if there is persistent thrombus in the RV. The management will be different if there is persistent RV thrombus. Case discussed with Dr. Marquez and Dr. Greco. Follow consult to follow. Past Patient History - Past Medical History & Family History Past Medical History?: Yes - Past Social History Smoking Status: Never Smoked - CARDIAC Hx Cardiac Disorders: No - PULMONARY Hx Respiratory Disorders: Yes - NEUROLOGICAL Hx Neurological Disorder: No - HEENT Hx HEENT Problems: Yes - RENAL Hx Chronic Kidney Disease: No - ENDOCRINE/METABOLIC Hx Endocrine Disorders: Yes - HEMATOLOGICAL/ONCOLOGICAL Hx Blood Disorders: No - INTEGUMENTARY Hx Dermatological Problems: No - MUSCULOSKELETAL/RHEUMATOLOGICAL Hx Musculoskeletal Disorders: No - GASTROINTESTINAL Hx Gastrointestinal Disorders: No - GENITOURINARY/GYNECOLOGICAL Hx Genitourinary Disorders: No - PSYCHIATRIC Hx Psychophysiologic Disorder: No - SURGICAL HISTORY Hx Surgeries: Yes Hx Cholecystectomy: Yes Hx Orthopedic Surgery: Yes (RIGHT KNEE ACL REPAIR X 2) Other/Comment: BUNIONECTOMY. 3 SINUS SX - ANESTHESIA Hx Anesthesia: Yes Hx Anesthesia Reactions: No Meds Allergies/Adverse Reactions: Allergies Allergy/AdvReac Type Severity Reaction Status Date / Time No Known Allergies Allergy Verified 09/24/16 14:33 - Medications Medications: Current Medications Al Hydrox/Mg Hydrox/Simethicone (Maalox Plus 30 Ml) 30 ml PO Q6 PRN PRN Reason: Indigestion / Heartburn Last Admin: 09/24/16 21:21 Dose: 30 ml Albuterol/Ipratropium (Duoneb 3 Mg/0.5 Mg (3 Ml) Ud) 3 ml INH RQ4 PRN PRN Reason: Shortness of Breath Last Admin: 09/25/16 11:25 Dose: 3 ml Diazepam (Valium) 5 mg PO HS PRN PRN Reason: Anxiety Last Admin: 09/24/16 21:10 Dose: 5 mg Enoxaparin Sodium (Lovenox) 120 mg SC Q12 YESY PRN Reason: Protocol Last Admin: 09/25/16 09:00 Dose: 120 mg Ibuprofen (Motrin Tab) 800 mg PO Q8 PRN PRN Reason: Pain, moderate (4-7) Pantoprazole Sodium (Protonix Ec Tab) 40 mg PO DAILY [facility] Last Admin: 09/25/16 09:00 Dose: 40 mg Zolpidem Tartrate (Ambien) 5 mg PO HS PRN PRN Reason: Sleep Last Admin: 09/24/16 23:39 Dose: 5 mg Results - Vital Signs Recent Vital Signs: Last Vital Signs Temp 98.1 F 09/25/16 12:00 Pulse 82 09/25/16 12:00 Resp 33 H 09/25/16 12:00 BP 124/77 09/25/16 12:00 Pulse Ox 96 09/25/16 12:00 - Labs Result Diagrams: 09/25/16 05:00 09/25/16 05:00 Labs: Laboratory Results - last 24 hr 09/25/16 09/25/16 09/25/16 05:00 05:00 05:00 WBC 8.7 RBC 4.61 Hgb 13.0 Hct 39.6 MCV 86.0 MCH 28.3 MCHC 32.9 L RDW 12.9 Plt Count 288 MPV 8.7 Neut % (Auto) 48.2 L Lymph % (Auto) 38.9 Pender % (Auto) 7.8 Eos % (Auto) 4.1 H Baso % (Auto) 1.0 Neut # 4.2 Lymph # 3.4 Pender # 0.7 Eos # 0.4 Baso # 0.1 PT 11.5 H INR 1.11 H APTT 32.3 D Sodium 140 Potassium 4.0 Chloride 104 Carbon Dioxide 28 Anion Gap 12 BUN 7 Creatinine 0.7 Est GFR ( Amer) > 60 Est GFR (Non-Af Amer) > 60 Random Glucose 194 H Hemoglobin A1c Lactic Acid Calcium 9.9 Total Bilirubin 0.4 AST 28 ALT 34 Alkaline Phosphatase 93 Troponin I 0.3340 H* Total Protein 7.4 Albumin 3.8 Globulin 3.6 Albumin/Globulin Ratio 1.1 Triglycerides 183 H Cholesterol 260 H LDL Cholesterol Direct 172 H HDL Cholesterol 44 TSH 3rd Generation 3.86 09/25/16 09/25/16 05:00 05:00 WBC RBC Hgb Hct MCV MCH MCHC RDW Plt Count MPV Neut % (Auto) Lymph % (Auto) Pender % (Auto) Eos % (Auto) Baso % (Auto) Neut # Lymph # Pender # Eos # Baso # PT INR APTT Sodium Potassium Chloride Carbon Dioxide Anion Gap BUN Creatinine Est GFR ( Amer) Est GFR (Non-Af Amer) Random Glucose Hemoglobin A1c 10.3 H Lactic Acid 1.8 Calcium Total Bilirubin AST ALT Alkaline Phosphatase Troponin I Total Protein Albumin Globulin Albumin/Globulin Ratio Triglycerides Cholesterol LDL Cholesterol Direct HDL Cholesterol TSH 3rd Generation
[2016-09-26 05:26] LABS: HEMATOCRIT 37.5 % (34.0-47.0); MEAN CELL VOLUME 86.4 fl (81.0-99.0); MEAN CORPUSCULAR HEMOGLOBIN 28.6 pg (27.0-31.0); MEAN CORPUSCULAR HGB CONC 33.1 g/dL (33.0-37.0); RED CELL DISTRIBUTION WIDTH 13.3 % (11.5-14.5); WHITE BLOOD COUNT 7.8 K/uL (4.8-10.8)
[2016-09-26 05:53] LABS: ALKALINE PHOSPHATASE 88 U/L (38-126); ALT/SGPT 27 U/L (9-52); AST/SGOT 24 U/L (14-36); BILIRUBIN,TOTAL 0.4 mg/dl (0.2-1.3); BLOOD UREA NITROGEN 12 mg/dl (7-17); CALCIUM 9.7 mg/dL (8.4-10.2); CARBON DIOXIDE 26 mmol/L (22-30); CHLORIDE 105 mmol/L (98-107); GFR AFRICAN-AMERICAN > 60; GLUCOSE,RANDOM 229 mg/dL (65-105); POTASSIUM 4.3 MMOL/L (3.6-5.0); SODIUM 139 mmol/l (132-148)
--- NOTE | 2016-09-26 07:55 | CARD ---
APPROVED REPORT EXAM: Two-dimensional and M-mode echocardiogram with Doppler and color Doppler. Other Information Quality : [employer] : INDICATION 2D DIMENSIONS IVSd0.87 (0.7-1.1cm)LVDd3.84 (3.9-5.9cm) LVOT Diameter1.73 (1.8-2.4cm)PWd0.83 (0.7-1.1cm) IVSs1.50 (0.8-1.2cm)LVDs2.83 (2.5-4.0cm) FS (%) 26.3 %PWs1.58 (0.8-1.2cm) M-Mode DIMENSIONS Left Atrium (MM)3.00 (2.5-4.0cm)IVSd1.20 (0.7-1.1cm) Aortic Root2.30 (2.2-3.7cm)LVDd3.37 (4.0-5.6cm) Aortic Cusp Exc.1.90 (1.5-2.0cm)PWd1.33 (0.7-1.1cm) IVSs1.53 cmFS (%) 38 % LVDs2.10 (2.0-3.8cm)PWs1.83 cm Aortic Valve AoV Peak Jsubsopz025.6cm/sAoV VTI23.5cmAO Peak GR.9mmHg LVOT Peak Uelmvczy057.8cm/Lewis Mean GR.6mmHgAVA (VMAX)0.88cm2 Mitral Valve MV E Fwotepyt29.6cm/sMV DECEL [id number] A Xnaqbrzz63.4cm/s MV TPB49fdH/A ratio0.9MVA (PHT)2.33cm2 TDI Lateral E' Peak V10.76cm/sMedial E' Peak V9.13cm/sE/Lateral E'4.7 E/Medial E'5.5 Pulmonary Valve PV Peak Sldczryk70.4cm/s Tricuspid Valve TR Peak Jbuervfn733ax/sRAP UNHRSTVW07waTiIM Peak Gr.38mmHg [id number] LEFT VENTRICLE The left ventricle is normal size. There is normal left ventricular wall thickness. Left ventricle systolic function is normal. The Ejection Fraction is 65-70%. There is normal LV segmental wall motion. Transmitral Doppler flow pattern is Grade I-abnormal relaxation pattern. RIGHT VENTRICLE The right ventricle is mildly dilated. There is normal right ventricular wall thickness. The right ventricular systolic function is normal. ATRIA The left atrium size is normal. A small echo dense body (poorly visualised)in Rt atrium may represent a thrombus. The right atrium size is normal. AORTIC VALVE The aortic valve is normal in structure and function. No aortic regurgitation is present. No aortic regurgitation is present. There is no aortic valvular stenosis. There is no aortic valvular stenosis. There is no aortic valvular vegetation. MITRAL VALVE The mitral valve is normal in structure and function. There is no evidence of mitral valve prolapse. There is no mitral valve stenosis. There is no mitral valve regurgitation noted. TRICUSPID VALVE The tricuspid valve is normal in structure. There is moderate to severe tricuspid regurgitation. Right ventricular systolic pressure is estimated at 53 mmHg. There is moderate-severe pulmonary hypertension. PULMONIC VALVE The pulmonary valve is normal in structure and function. There is no pulmonic valvular regurgitation. GREAT VESSELS The aortic root is normal in size. Due to poor image quality, the IVC could not be assessed. PERICARDIAL EFFUSION The pericardium appears normal. <Conclusion> The left ventricle is normal size. There is normal left ventricular wall thickness. There is normal LV segmental wall motion. Left ventricle systolic function is normal. The Ejection Fraction is 65-70%. Transmitral Doppler flow pattern is Grade I-abnormal relaxation pattern. The right ventricle is mildly dilated. A small echo dense body (poorly visualised)in Rt atrium may represent a thrombus. (Telecommunications Technician aware of the finding) There is moderate to severe tricuspid regurgitation. There is moderate-severe pulmonary hypertension.
--- NOTE | 2016-09-26 08:17 | CP.CCUPN ---
CCU Subjective - Physician Review Subjective (Free Text): REPTILE KEEPER PROGRESS NOTE Patient examined, interim events reviewed: No complaints, uneventful overnight, hemodynamics remain stable, no overt distress, started on Eliquis. . Afebrile, 140/98, HR784, RR 19, 99% SPO2 on nasal cannula ROS: as above, no other pertinent negs or positives on 10 system review. 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 Otherwise, all nursing and historical notes reviewed, no new pertinent data relevant to current problems. No other distress noted: EXAM- HEENT: no icterus, pupils equal and reactive NECK: no visible JVD, supple, carotids equal upstroke bilat/no bruits CHEST: decreased BS bases, no wheezes HEART: regular, distant, S1S2, no murmur audible, no rubs. ABD: soft, no increased distention, no focal tenderness, no HSM. BS hypoactive , EXT: Left foot in boot dressing, no cords or calf tenderness on R. Distal Pulses intact bilat. NEURO: no gross focal motor deficits SKIN: no rashes LABS: WBC= 7.8 HGB= 12.4 PLTs= 274K Na= 139 K= 4.3 HCO3= 26 BUN/Cr=12/0.8 BS= 229 Trop #1 neg at 0.11 Trop #2 pos= 0.33 MAJOR PROBLEMS NOW: 1. Sub-Acute / Acute Pulmonary Thromboembolism 2. LLE DVT 3. s/p Left Bunion Surgery 4. Uncontrolled Hypertension, r/o Anxiety Disorder 5. DM II 6. Morbid Obesity PLAN: 1. Eliquis started, Lovenox discontinued. 2. Looks to need antihypertensives, consider ACEi. 3. HGBa1c is high, discussed need to start oral hypoglycemics, consider Endocrine eval while in-hospital. 4. Stable for Transfer to Stepdown bed today.
[2016-09-26] MEDS: Pantoprazole 40 mg EC Tab PO SCH (08:59)
--- NOTE | 2016-09-26 14:40 | CP.PCM.PN ---
Subjective - Date & Time of Evaluation Date of Evaluation: 09/26/16 Time of Evaluation: 08:39 - Subjective Subjective: Patient seen and examined at bedside with attending. No acute events overnight. Patient had ECHO completed yesterday, found to have possible RV thrombus. Cardiology/IR on board, agrees that cath lysis no recommended at this time, medical management perferred, all explained with patient. Patient denies sob, palpitations, chest pain, fever, chills, headache. Patient states right foot pain, previously on valium and ibuprofen. Objective - Vital Signs/Intake and Output Vital Signs (last 24 hours): Temp Pulse Resp BP Pulse Ox 98.3 F 77 21 125/83 95 09/26/16 12:31 09/26/16 12:31 09/26/16 12:31 09/26/16 12:31 09/26/16 12:31 Intake and Output: 09/26/16 09/26/16 06:59 18:59 Intake Total 324 Output Total 950 Balance -626 - Medications Medications: Current Medications Al Hydrox/Mg Hydrox/Simethicone (Maalox Plus 30 Ml) 30 ml PO Q6 PRN PRN Reason: Indigestion / Heartburn Last Admin: 09/24/16 21:21 Dose: 30 ml Albuterol/Ipratropium (Duoneb 3 Mg/0.5 Mg (3 Ml) Ud) 3 ml INH Q6 YESY Apixaban (Eliquis) 10 mg PO BID YESY PRN Reason: Protocol Last Admin: 09/26/16 08:59 Dose: 10 mg Budesonide (Pulmicort Respules) 0.5 mg IH RBID YESY Diazepam (Valium) 5 mg PO HS PRN PRN Reason: Anxiety Last Admin: 09/25/16 22:07 Dose: 5 mg Ibuprofen (Motrin Tab) 800 mg PO Q8 PRN PRN Reason: Pain, moderate (4-7) Last Admin: 09/26/16 10:53 Dose: 800 mg Insulin Detemir (Levemir) 12 units SC HS YESY Insulin Human Lispro (Humalog) 4 units SC AC YESY Insulin Human Lispro (Humalog) 0 units SC ACHS YESY PRN Reason: Protocol Pantoprazole Sodium (Protonix Ec Tab) 40 mg PO DAILY [facility] Last Admin: 09/26/16 08:59 Dose: 40 mg Zolpidem Tartrate (Ambien) 5 mg PO HS PRN PRN Reason: Sleep Last Admin: 09/25/16 21:55 Dose: 5 mg - Labs Labs: 09/26/16 04:25 09/26/16 04:25 PT 11.5 SECONDS (9.6-11.2) H 09/25/16 05:00 INR 1.11 (0.92-1.08) H 09/25/16 05:00 APTT 32.3 SECONDS (23.3-32.5) D 09/25/16 05:00 - Constitutional Appears: Well, Non-toxic, No Acute Distress - Head Exam Head Exam: ATRAUMATIC, NORMAL INSPECTION, NORMOCEPHALIC - Eye Exam Eye Exam: Normal appearance - Neck Exam Neck Exam: Normal Inspection - Respiratory Exam Respiratory Exam: NORMAL BREATHING PATTERN - Cardiovascular Exam Cardiovascular Exam: REGULAR RHYTHM, +S1, +S2. absent: Murmur - GI/Abdominal Exam GI & Abdominal Exam: Soft, Normal Bowel Sounds Additional comments: obese - Extremities Exam Extremities Exam: Normal Inspection (left foot with boot dressing from bunionectomy, cdi) - Neurological Exam Neurological Exam: Alert, Awake, Oriented x3 - Psychiatric Exam Psychiatric exam: Normal Affect, Normal Mood - Skin Skin Exam: Dry, Intact, Normal Color, Warm Assessment and Plan (1) Bilateral pulmonary embolism Assessment & Plan: Symptoms improved transfer from ICU Cardiology on board, appreciate input Echo completed, IR/Cardio agree medical management for RV thrombus c/w Eliquis 10mg BID Pulmonary on board, appreciate input Status: Acute (2) DVT (deep venous thrombosis) Assessment & Plan: genetic studies pending Status: Acute (3) S/P bunionectomy Assessment & Plan: Podiatry on board dressing CDI s/p 3 wks ago Status: Acute (4) Diabetes type 2, uncontrolled Assessment & Plan: Not on meds in past, previously controlled by diet as per patient HgbA1c: 10.3 Endocrinology consulted, appreciate recommendations Diabetic diet Accuchecks ACHS Status: Acute
--- NOTE | 2016-09-26 14:41 | CP.PCM.PN ---
Subjective - Date & Time of Evaluation Date of Evaluation: 09/26/16 Time of Evaluation: 12:30 - Subjective Subjective: F/U PE. Pt with mild SOB, no A/D, no chest pain, no fever. Objective - Vital Signs/Intake and Output Vital Signs (last 24 hours): Temp Pulse Resp BP Pulse Ox 98.3 F 77 21 125/83 95 09/26/16 12:31 09/26/16 12:31 09/26/16 12:31 09/26/16 12:31 09/26/16 12:31 Intake and Output: 09/26/16 09/26/16 06:59 18:59 Intake Total 324 Output Total 950 Balance -626 - Medications Medications: Current Medications Al Hydrox/Mg Hydrox/Simethicone (Maalox Plus 30 Ml) 30 ml PO Q6 PRN PRN Reason: Indigestion / Heartburn Last Admin: 09/24/16 21:21 Dose: 30 ml Albuterol/Ipratropium (Duoneb 3 Mg/0.5 Mg (3 Ml) Ud) 3 ml INH Q6 YESY Apixaban (Eliquis) 10 mg PO BID YESY PRN Reason: Protocol Last Admin: 09/26/16 08:59 Dose: 10 mg Budesonide (Pulmicort Respules) 0.5 mg IH RBID YESY Diazepam (Valium) 5 mg PO HS PRN PRN Reason: Anxiety Last Admin: 09/25/16 22:07 Dose: 5 mg Ibuprofen (Motrin Tab) 800 mg PO Q8 PRN PRN Reason: Pain, moderate (4-7) Last Admin: 09/26/16 10:53 Dose: 800 mg Insulin Detemir (Levemir) 12 units SC HS YESY Insulin Human Lispro (Humalog) 4 units SC AC YESY Insulin Human Lispro (Humalog) 0 units SC ACHS YESY PRN Reason: Protocol Pantoprazole Sodium (Protonix Ec Tab) 40 mg PO DAILY YESY Last Admin: 09/26/16 08:59 Dose: 40 mg Zolpidem Tartrate (Ambien) 5 mg PO HS PRN PRN Reason: Sleep Last Admin: 09/25/16 21:55 Dose: 5 mg - Labs Labs: 09/26/16 04:25 09/26/16 04:25 PT 11.5 SECONDS (9.6-11.2) H 09/25/16 05:00 INR 1.11 (0.92-1.08) H 09/25/16 05:00 APTT 32.3 SECONDS (23.3-32.5) D 09/25/16 05:00 - Constitutional Appears: No Acute Distress - Head Exam Head Exam: NORMAL INSPECTION - Eye Exam Eye Exam: PERRL - ENT Exam ENT Exam: Normal Oropharynx - Neck Exam Neck Exam: Normal Inspection - Respiratory Exam Respiratory Exam: NORMAL BREATHING PATTERN - Cardiovascular Exam Cardiovascular Exam: REGULAR RHYTHM - GI/Abdominal Exam GI & Abdominal Exam: Soft, Normal Bowel Sounds - Extremities Exam Additional comments: Dressing L foot - Neurological Exam Neurological Exam: Alert, Oriented x3. absent: Motor Sensory Deficit - Psychiatric Exam Psychiatric exam: Normal Mood - Skin Skin Exam: Warm Assessment and Plan (1) Bilateral pulmonary embolism Status: Acute (2) Deep venous thrombosis of left popliteal vein Status: Acute (3) S/P bunionectomy Status: Acute (4) Asthma Status: Chronic - Assessment and Plan (Free Text) Plan: Begins Pulmicort, Duoneb, continue Eliquis and rest of Tx. ICU time 40 minutes.
[2016-09-26] MEDS: Albuterol-Ipratrop 3 mg / 0.5 (3 ml) UD INH SCH ×2 (14:52→19:35)
--- NOTE | 2016-09-26 15:12 | CP.PCM.PN ---
Subjective - Date & Time of Evaluation Date of Evaluation: 09/26/16 Time of Evaluation: 15:10 - Subjective Subjective: 46 year old female seen at bedside with attending Dr. Lopes 3 weeks s/p left bunion surgery with PE and L poplietal DVT. She admits to shortness of breath , and mild chest tightness, but denies any other acute event overnight. She denies any left calf tenderness or pain in her lower extremities. denies n/v/f/ c. Objective - Vital Signs/Intake and Output Vital Signs (last 24 hours): Temp Pulse Resp BP Pulse Ox 98.3 F 76 22 122/68 99 09/26/16 12:31 09/26/16 14:00 09/26/16 14:00 09/26/16 14:00 09/26/16 14:00 Intake and Output: 09/26/16 09/26/16 06:59 18:59 Intake Total 324 480 Output Total 950 Balance -626 480 - Medications Medications: Current Medications Al Hydrox/Mg Hydrox/Simethicone (Maalox Plus 30 Ml) 30 ml PO Q6 PRN PRN Reason: Indigestion / Heartburn Last Admin: 09/24/16 21:21 Dose: 30 ml Albuterol/Ipratropium (Duoneb 3 Mg/0.5 Mg (3 Ml) Ud) 3 ml INH RQ6 YESY Last Admin: 09/26/16 14:52 Dose: 3 ml Apixaban (Eliquis) 10 mg PO BID YESY PRN Reason: Protocol Last Admin: 09/26/16 08:59 Dose: 10 mg Budesonide (Pulmicort Respules) 0.5 mg IH RBID YESY Diazepam (Valium) 5 mg PO HS PRN PRN Reason: Anxiety Last Admin: 09/25/16 22:07 Dose: 5 mg Ibuprofen (Motrin Tab) 800 mg PO Q8 PRN PRN Reason: Pain, moderate (4-7) Last Admin: 09/26/16 10:53 Dose: 800 mg Insulin Detemir (Levemir) 12 units SC HS YESY Insulin Human Lispro (Humalog) 4 units SC AC YESY Insulin Human Lispro (Humalog) 0 units SC ACHS YESY PRN Reason: Protocol Pantoprazole Sodium (Protonix Ec Tab) 40 mg PO DAILY YESY Last Admin: 09/26/16 08:59 Dose: 40 mg Zolpidem Tartrate (Ambien) 5 mg PO HS PRN PRN Reason: Sleep Last Admin: 09/25/16 21:55 Dose: 5 mg - Labs Labs: 09/26/16 04:25 09/26/16 04:25 PT 11.5 SECONDS (9.6-11.2) H 09/25/16 05:00 INR 1.11 (0.92-1.08) H 09/25/16 05:00 APTT 32.3 SECONDS (23.3-32.5) D 09/25/16 05:00 - Constitutional Appears: Well, Non-toxic, No Acute Distress - Extremities Exam Additional comments: left foot focused: Vasc; DP/PT 2/4, TG wnl, CFT < 3 sec to all digits neuro: grossly intact derm: no edema, no erythema, surgical incision site intact, no dehiscence, sutures intact, no ascending cellulitis, no acute clinical signs of infection ortho: no pain on palpation along incision site - Neurological Exam Neurological Exam: Alert, Awake, Oriented x3 - Psychiatric Exam Psychiatric exam: Normal Affect, Normal Mood Assessment and Plan - Assessment and Plan (Free Text) Assessment: 46 y/o female seen at bedside 3 weeks s/p left bunion surgery with PE and L poplietal DVT Plan: patient examined and evaluated with attending Dr. Lopes at bedside CT reviewed- PE noted LE US reviewed- L popliteal DVT noted applied 4x4 gauze, coban to LLE podiatry will continue to follow patient while in house
[2016-09-26] MEDS ORDERED: Albuterol-Ipratrop 3 mg / 0.5 (3 ml) UD INH STA (15:31)
[2016-09-26] MEDS: Insulin Lispro (humaLOG) 100 Units/ml Inj SC SCH ×3 (16:57→22:18)
[2016-09-26] MEDS: Budesonide 0.5 mg/2 ml Inhal Susp UD IH SCH (19:34)
--- NOTE | 2016-09-26 19:46 | CP.PCM.PN ---
Subjective - Date & Time of Evaluation Date of Evaluation: 09/26/16 Time of Evaluation: 17:00 - Subjective Subjective: patient has mild dyspnea with exertion. feels comfortable at rest. Objective - Vital Signs/Intake and Output Vital Signs (last 24 hours): Temp Pulse Resp BP Pulse Ox 97.8 F 84 11 L 125/77 98 09/26/16 16:00 09/26/16 18:00 09/26/16 18:00 09/26/16 18:00 09/26/16 18:00 Intake and Output: 09/26/16 09/27/16 18:59 06:59 Intake Total 1440 Output Total 600 Balance 840 - Medications Medications: Current Medications Al Hydrox/Mg Hydrox/Simethicone (Maalox Plus 30 Ml) 30 ml PO Q6 PRN PRN Reason: Indigestion / Heartburn Last Admin: 09/24/16 21:21 Dose: 30 ml Albuterol/Ipratropium (Duoneb 3 Mg/0.5 Mg (3 Ml) Ud) 3 ml INH RQ6 [facility] Last Admin: 09/26/16 19:35 Dose: 3 ml Apixaban (Eliquis) 10 mg PO BID YESY PRN Reason: Protocol Last Admin: 09/26/16 17:24 Dose: 10 mg Budesonide (Pulmicort Respules) 0.5 mg IH RBID [facility] Last Admin: 09/26/16 19:34 Dose: 0.5 mg Diazepam (Valium) 5 mg PO HS PRN PRN Reason: Anxiety Last Admin: 09/25/16 22:07 Dose: 5 mg Docusate Sodium (Colace) 100 mg PO BID [facility] Ibuprofen (Motrin Tab) 800 mg PO Q8 PRN PRN Reason: Pain, moderate (4-7) Last Admin: 09/26/16 10:53 Dose: 800 mg Insulin Detemir (Levemir) 12 units SC HS YESY Insulin Human Lispro (Humalog) 4 units SC AC [facility] Last Admin: 09/26/16 17:24 Dose: 4 units Insulin Human Lispro (Humalog) 0 units SC ACHS YESY PRN Reason: Protocol Last Admin: 09/26/16 16:57 Dose: Not Given Pantoprazole Sodium (Protonix Ec Tab) 40 mg PO DAILY [facility] Last Admin: 09/26/16 08:59 Dose: 40 mg Zolpidem Tartrate (Ambien) 5 mg PO HS PRN PRN Reason: Sleep Last Admin: 09/25/16 21:55 Dose: 5 mg - Labs Labs: 09/26/16 04:25 09/26/16 04:25 PT 11.5 SECONDS (9.6-11.2) H 09/25/16 05:00 INR 1.11 (0.92-1.08) H 09/25/16 05:00 APTT 32.3 SECONDS (23.3-32.5) D 09/25/16 05:00 - Constitutional Appears: Non-toxic - Head Exam Head Exam: NORMAL INSPECTION - Eye Exam Eye Exam: Normal appearance - ENT Exam ENT Exam: Mucous Membranes Moist - Neck Exam Neck Exam: Full ROM - Respiratory Exam Respiratory Exam: Decreased Breath Sounds - Cardiovascular Exam Cardiovascular Exam: REGULAR RHYTHM - GI/Abdominal Exam GI & Abdominal Exam: Normal Bowel Sounds - Rectal Exam Rectal Exam: Deferred - Extremities Exam Extremities Exam: absent: Pedal Edema - Back Exam Back Exam: NORMAL INSPECTION - Neurological Exam Neurological Exam: Alert - Psychiatric Exam Psychiatric exam: Normal Affect - Skin Skin Exam: Normal Color Assessment and Plan (1) HTN (hypertension) Assessment & Plan: will continue blood pressure control Status: Acute (2) Bilateral pulmonary embolism Assessment & Plan: on NOAC. Status: Acute (3) DVT (deep venous thrombosis) Assessment & Plan: continue anticoagulation Status: Acute
[2016-09-26] MEDS ORDERED: Insulin Detemir 100 Units/ml Inj SC SCH (22:00)
[2016-09-27] MEDS: Albuterol-Ipratrop 3 mg / 0.5 (3 ml) UD INH SCH ×4 (01:05→19:35)
[2016-09-27 07:00] LABS: BASO % 0.5 % (0.0-2.0); EOS # 0.4 K/uL (0.0-0.7); HEMATOCRIT 36.3 % (34.0-47.0); LYMPH # 2.2 K/uL (1.0-4.3); LYMPH % 30.5 % (20.0-40.0); MEAN CELL VOLUME 85.8 fl (81.0-99.0); MEAN CORPUSCULAR HEMOGLOBIN 28.6 pg (27.0-31.0); MEAN CORPUSCULAR HGB CONC 33.3 g/dL (33.0-37.0); MEAN PLATELET VOLUME 8.6 fl (7.2-11.7); MONO # 0.6 K/uL (0.0-0.8); MONO % 8.4 % (0.0-10.0); NEUT % 54.6 % (50.0-75.0); RED CELL DISTRIBUTION WIDTH 13.1 % (11.5-14.5); WHITE BLOOD COUNT 7.4 K/uL (4.8-10.8)
[2016-09-27] MEDS: Budesonide 0.5 mg/2 ml Inhal Susp UD IH SCH ×2 (07:17→19:35)
[2016-09-27 07:21] LABS: ALB/GLOB RATIO 1.1 (1.0-2.1); ALKALINE PHOSPHATASE 86 U/L (38-126); ALT/SGPT 35 U/L (9-52); AST/SGOT 37 U/L (14-36); BILIRUBIN,TOTAL 0.4 mg/dl (0.2-1.3); BLOOD UREA NITROGEN 12 mg/dl (7-17); CALCIUM 9.6 mg/dL (8.4-10.2); CARBON DIOXIDE 29 mmol/L (22-30); CHLORIDE 103 mmol/L (98-107); CHOLESTEROL 253 mg/dL (0-199); GFR AFRICAN-AMERICAN > 60; GLUCOSE,RANDOM 197 mg/dL (65-105); POTASSIUM 4.2 MMOL/L (3.6-5.0); SODIUM 141 mmol/l (132-148); TOTAL PROTEIN 7.1 G/DL (6.3-8.2)
[2016-09-27] MEDS: Insulin Lispro (humaLOG) 100 Units/ml Inj SC SCH ×7 (07:30→22:12)
[2016-09-27 07:50] LABS: THYROID STIMULATING HORMONE 2.27 mIU/ML (0.46-4.68)
[2016-09-27] MEDS: Pantoprazole 40 mg EC Tab PO SCH (09:04)
--- NOTE | 2016-09-27 10:02 | PN ---
DATE: 09/27/2016 The patient seen and examined. Interim events noted. Consults noted and appreciated. Supervisor Blueprinting And Photocopy i ntervention noted and appreciated. Cardiology followup noted and appreciated. Case discussed with section leader screen printing. The patient remains in intensive care unit. The patient feels okay. No chest fish n or shortness of breath. PHYSICAL EXAMINATION: GENERAL: The patient is in no acute distress. VITAL SIGNS: Stable. HEART: S1, S2 normal, regular. LUNGS: Good bilateral air exchange. ABDOMEN: Soft, nontender. EXTREMITIES: No edema, no calf swelling, no tenderness, no acute ischemia. CENTRAL NERVOUS SYSTEM: Essentially unchanged. Left foot is in surgical dressing. No sign of dista l complications. Overall, the patient's general medical condition is stable. PLAN: As ordered. Paul Moreno MD cc: [id number] TT: 09/27/2016 10:01:08 Confirmation # [id number] Dictation # [id number] christopher
--- NOTE | 2016-09-27 12:01 | CP.PCM.PN ---
Subjective - Date & Time of Evaluation Date of Evaluation: 09/27/16 Time of Evaluation: 11:59 - Subjective Subjective: Patient seen and evaluated at bedside, NAD. Patient is resting comfortably, states that she feels well today. She reports some mild pain to the surgical site. Bandage is clean dry and intact to the left foot. Objective - Vital Signs/Intake and Output Vital Signs (last 24 hours): Temp Pulse Resp BP Pulse Ox 98.1 F 85 23 120/78 97 09/27/16 08:00 09/27/16 08:00 09/27/16 08:00 09/27/16 08:00 09/27/16 08:00 Intake and Output: 09/27/16 09/27/16 06:59 18:59 Intake Total 120 Balance 120 - Medications Medications: Current Medications Al Hydrox/Mg Hydrox/Simethicone (Maalox Plus 30 Ml) 30 ml PO Q6 PRN PRN Reason: Indigestion / Heartburn Last Admin: 09/24/16 21:21 Dose: 30 ml Albuterol/Ipratropium (Duoneb 3 Mg/0.5 Mg (3 Ml) Ud) 3 ml INH RQ6 YESY Last Admin: 09/27/16 07:17 Dose: 3 ml Apixaban (Eliquis) 10 mg PO BID YESY PRN Reason: Protocol Last Admin: 09/27/16 08:51 Dose: 10 mg Budesonide (Pulmicort Respules) 0.5 mg IH RBID YESY Last Admin: 09/27/16 07:17 Dose: 0.5 mg Diazepam (Valium) 5 mg PO HS PRN PRN Reason: Anxiety Last Admin: 09/25/16 22:07 Dose: 5 mg Docusate Sodium (Colace) 100 mg PO BID REPLACED BY [facility] Last Admin: 09/27/16 09:06 Dose: Not Given Ibuprofen (Motrin Tab) 800 mg PO Q8 PRN PRN Reason: Pain, moderate (4-7) Last Admin: 09/26/16 10:53 Dose: 800 mg Insulin Detemir (Levemir) 14 units SC HS YESY Insulin Human Lispro (Humalog) 4 units SC AC REPLACED BY [facility] Last Admin: 09/27/16 07:30 Dose: 4 units Insulin Human Lispro (Humalog) 0 units SC ACHS YESY PRN Reason: Protocol Last Admin: 09/27/16 09:03 Dose: Not Given Pantoprazole Sodium (Protonix Ec Tab) 40 mg PO DAILY YESY Last Admin: 09/27/16 09:04 Dose: 40 mg Zolpidem Tartrate (Ambien) 5 mg PO HS PRN PRN Reason: Sleep Last Admin: 09/27/16 00:31 Dose: 5 mg - Labs Labs: 09/27/16 05:30 09/27/16 05:30 PT 11.5 SECONDS (9.6-11.2) H 09/25/16 05:00 INR 1.11 (0.92-1.08) H 09/25/16 05:00 APTT 32.3 SECONDS (23.3-32.5) D 09/25/16 05:00 - Constitutional Appears: Well, Non-toxic, No Acute Distress - Neurological Exam Neurological Exam: Oriented x3 - Psychiatric Exam Psychiatric exam: Normal Affect, Normal Mood - Additional Findings Additional findings: Skin is intact distal and proximal to the bandage on the left foot. Neurovascular status intact as well. There is some edema of the left lower extremity, however normal/minimal edema of the foot and surgical site. Assessment and Plan - Assessment and Plan (Free Text) Assessment: 46 year old female 3 weeks s/p left foot bunionectomy with L leg DVT and PE. Plan: Patient seen and evaluated, d/w attending Dr. Lopes. Patients bandage left intact. Order placed for surgical shoe to be worn while ambulating to and from the bathroom. Podiatry will continue to follow.
--- NOTE | 2016-09-27 15:44 | CP.PCM.PN ---
Subjective - Date & Time of Evaluation Date of Evaluation: 09/27/16 Time of Evaluation: 10:40 - Subjective Subjective: F/U PE. Pt with no SOB, he took NC off, minimal chest congestion on inspirator face. Objective - Vital Signs/Intake and Output Vital Signs (last 24 hours): Temp Pulse Resp BP Pulse Ox 98 F 91 H 18 140/66 100 09/27/16 12:00 09/27/16 14:00 09/27/16 14:00 09/27/16 12:00 09/27/16 14:00 Intake and Output: 09/27/16 09/27/16 06:59 18:59 Intake Total 120 Output Total 300 Balance 120 -300 - Medications Medications: Current Medications Al Hydrox/Mg Hydrox/Simethicone (Maalox Plus 30 Ml) 30 ml PO Q6 PRN PRN Reason: Indigestion / Heartburn Last Admin: 09/24/16 21:21 Dose: 30 ml Albuterol/Ipratropium (Duoneb 3 Mg/0.5 Mg (3 Ml) Ud) 3 ml INH RQ6 [facility] Last Admin: 09/27/16 13:33 Dose: 3 ml Apixaban (Eliquis) 10 mg PO BID YESY PRN Reason: Protocol Last Admin: 09/27/16 08:51 Dose: 10 mg Budesonide (Pulmicort Respules) 0.5 mg IH RBID YESY Last Admin: 09/27/16 07:17 Dose: 0.5 mg Diazepam (Valium) 5 mg PO HS PRN PRN Reason: Anxiety Last Admin: 09/25/16 22:07 Dose: 5 mg Docusate Sodium (Colace) 100 mg PO BID YESY Last Admin: 09/27/16 09:06 Dose: Not Given Ibuprofen (Motrin Tab) 800 mg PO Q8 PRN PRN Reason: Pain, moderate (4-7) Last Admin: 09/26/16 10:53 Dose: 800 mg Insulin Detemir (Levemir) 14 units SC HS YESY Insulin Human Lispro (Humalog) 4 units SC AC YESY Last Admin: 09/27/16 12:06 Dose: 4 units Insulin Human Lispro (Humalog) 0 units SC ACHS YESY PRN Reason: Protocol Last Admin: 09/27/16 12:07 Dose: Not Given Pantoprazole Sodium (Protonix Ec Tab) 40 mg PO DAILY YESY Last Admin: 09/27/16 09:04 Dose: 40 mg Zolpidem Tartrate (Ambien) 5 mg PO HS PRN PRN Reason: Sleep Last Admin: 09/27/16 00:31 Dose: 5 mg - Labs Labs: 09/27/16 05:30 09/27/16 05:30 PT 11.5 SECONDS (9.6-11.2) H 09/25/16 05:00 INR 1.11 (0.92-1.08) H 09/25/16 05:00 APTT 32.3 SECONDS (23.3-32.5) D 09/25/16 05:00 - Constitutional Appears: No Acute Distress - Head Exam Head Exam: NORMAL INSPECTION - Eye Exam Eye Exam: PERRL - ENT Exam ENT Exam: Normal Oropharynx - Neck Exam Neck Exam: Normal Inspection - Respiratory Exam Respiratory Exam: NORMAL BREATHING PATTERN - Cardiovascular Exam Cardiovascular Exam: REGULAR RHYTHM - GI/Abdominal Exam GI & Abdominal Exam: Soft, Normal Bowel Sounds - Extremities Exam Additional comments: L foot dressing in place. - Neurological Exam Neurological Exam: Alert, Oriented x3. absent: Motor Sensory Deficit - Psychiatric Exam Psychiatric exam: Normal Mood - Skin Skin Exam: Warm Assessment and Plan (1) Bilateral pulmonary embolism Status: Acute (2) Deep venous thrombosis of left popliteal vein Status: Acute (3) S/P bunionectomy Status: Acute (4) Asthma Status: Chronic - Assessment and Plan (Free Text) Plan: Pt can be transfer to Telemetry, continue Duoneb, Pulmicort Eliquis and rest of Tx. ICU time: 30 minutes.
[2016-09-27] MEDS ORDERED: Insulin Detemir 100 Units/ml Inj SC SCH (22:00)
[2016-09-28] MEDS: Albuterol-Ipratrop 3 mg / 0.5 (3 ml) UD INH SCH ×4 (01:01→19:32)
[2016-09-28] MEDS ORDERED: Insulin Detemir 100 Units/ml Inj SC SCH ×2 (06:04→22:00)
[2016-09-28] MEDS: Budesonide 0.5 mg/2 ml Inhal Susp UD IH SCH ×2 (08:01→19:32)
[2016-09-28] MEDS: Insulin Lispro (humaLOG) 100 Units/ml Inj SC SCH ×7 (08:17→22:07)
[2016-09-28 08:28] LABS: MEAN CORPUSCULAR HEMOGLOBIN 28.9 pg (27.0-31.0); MEAN CORPUSCULAR HGB CONC 33.6 g/dL (33.0-37.0); RED CELL DISTRIBUTION WIDTH 13.1 % (11.5-14.5)
[2016-09-28 08:42] LABS: ALB/GLOB RATIO 1.1 (1.0-2.1); ALKALINE PHOSPHATASE 97 U/L (38-126); ALT/SGPT 78 U/L (9-52); AST/SGOT 87 U/L (14-36); BILIRUBIN,TOTAL 0.4 mg/dl (0.2-1.3); BLOOD UREA NITROGEN 10 mg/dl (7-17); CARBON DIOXIDE 27 mmol/L (22-30); CHLORIDE 103 mmol/L (98-107); GFR AFRICAN-AMERICAN > 60; GLUCOSE,RANDOM 190 mg/dL (65-105); POTASSIUM 4.3 MMOL/L (3.6-5.0); SODIUM 141 mmol/l (132-148); TOTAL PROTEIN 7.8 G/DL (6.3-8.2)
[2016-09-28] MEDS: Pantoprazole 40 mg EC Tab PO SCH (08:45)
--- NOTE | 2016-09-28 09:16 | PN ---
DATE: 09/28/2016 The patient seen and examined. Interim events noted. Consults noted, appreciated. The patient is n ow transferred to progressive care unit with telemetry monitoring, out of intensive care unit. The p atient is awake, responsive. no shortness of breath. PHYSICAL EXAMINATION: GENERAL: The patient is in no acute distress. VITAL SIGNS: Stable. HEART: S1, S2 normal, regular. LUNGS: Good bilateral air exchange. ABDOMEN: Soft, nontender. EXTREMITIES: No edema, no calf swelling, no tenderness, no acute ischemia. CENTRAL NERVOUS SYSTEM: Essentially unchanged. DIAGNOSTIC DATA: Available reviewed. Telemetry monitoring does not reveal significant arrhythmia. Overall, patient's general medical condition is stable and improving. PLAN: As ordered. Paul Moreno MD cc: [id number] TT: 09/28/2016 09:16:09 Confirmation # [id number] Dictation # [id number] en
--- NOTE | 2016-09-28 11:46 | PN ---
DATE: 09/28/2016 ROOM: 408 This is a 46-year-old female with recent uncontrolled type 2 insulin-requiring diabetes with concomit ant bilateral pulmonary embolism with an underlying left deep vein thrombosis, currently receiving an ticoagulation therapy and is now being followed closely for metabolic management. Her glycemic levels are fluctuating, but improved, and the latest glucose levels have ranged from 167 -194 mg/dL. Her latest chemistry showed a BUN of 10, sodium 141, potassium 4.3, chloride 103, CO2 27 , glucose 190 and creatinine 0.8. So at this time, we will modify her current basal and bolus insulin regimen and increase the Levemir to 20 units subQ at bedtime daily to start tonight. We will continue her Humalog given as 4 units diamond bQ t.i.d. before meals as given. We will titrate incrementally as indicated to optimize metabolic co ntrol. She was actually on Janumet medications at home, so we may restart the medications accordingl y just prior to her discharge and keep her on the basal insulin as she clearly needs overnight basal insulin regimen to optimize her fasting glucose levels. Moreover, she had a very elevated A1c level which confirms the poor suboptimal metabolic control of her diabetic condition even prior to this adm ission. We will obtain serial chemistries and supplement accordingly as needed. We will follow. Radha Sanon MD cc: [phone] TT: 09/28/2016 11:46:12 Confirmation # [id number] Dictation # [id number] en
--- NOTE | 2016-09-28 13:00 | CP.PCM.PN ---
Subjective - Date & Time of Evaluation Date of Evaluation: 09/28/16 Time of Evaluation: 12:58 - Subjective Subjective: Patient seen and evaluated at bedside, NAD. Pt has been transfered to telemetry from ICU. Bandage is clean dry and intact to the left foot. Patient has surgical shoe at bedside to use for transfers to and from the commode. She states that she is feeling well, pain is mild and intermittent. Denies n/v/f/c. Objective - Vital Signs/Intake and Output Vital Signs (last 24 hours): Temp Pulse Resp BP Pulse Ox 97.6 F 62 18 121/77 98 09/28/16 12:19 09/28/16 12:19 09/28/16 12:19 09/28/16 12:19 09/28/16 12:19 Intake and Output: 09/28/16 09/28/16 06:59 18:59 Intake Total 180 Output Total 200 Balance -20 - Medications Medications: Current Medications Al Hydrox/Mg Hydrox/Simethicone (Maalox Plus 30 Ml) 30 ml PO Q6 PRN PRN Reason: Indigestion / Heartburn Last Admin: 09/24/16 21:21 Dose: 30 ml Albuterol/Ipratropium (Duoneb 3 Mg/0.5 Mg (3 Ml) Ud) 3 ml INH RQ6 [facility] Last Admin: 09/28/16 08:01 Dose: 3 ml Apixaban (Eliquis) 10 mg PO BID YESY PRN Reason: Protocol Last Admin: 09/28/16 08:44 Dose: 10 mg Budesonide (Pulmicort Respules) 0.5 mg IH RBID [facility] Last Admin: 09/28/16 08:01 Dose: 0.5 mg Diazepam (Valium) 5 mg PO HS PRN PRN Reason: Anxiety Last Admin: 09/25/16 22:07 Dose: 5 mg Docusate Sodium (Colace) 100 mg PO BID [facility] Last Admin: 09/28/16 08:43 Dose: 100 mg Ibuprofen (Motrin Tab) 800 mg PO Q8 PRN PRN Reason: Pain, moderate (4-7) Last Admin: 09/27/16 20:31 Dose: 800 mg Insulin Detemir (Levemir) 20 units SC HS [facility] Insulin Human Lispro (Humalog) 4 units SC AC [facility] Last Admin: 09/28/16 12:08 Dose: 4 units Insulin Human Lispro (Humalog) 0 units SC ACHS YESY PRN Reason: Protocol Last Admin: 09/28/16 12:05 Dose: Not Given Pantoprazole Sodium (Protonix Ec Tab) 40 mg PO DAILY YESY Last Admin: 09/28/16 08:45 Dose: 40 mg Zolpidem Tartrate (Ambien) 5 mg PO HS PRN PRN Reason: Sleep Last Admin: 09/27/16 00:31 Dose: 5 mg - Labs Labs: 09/28/16 06:30 09/28/16 06:30 PT 11.5 SECONDS (9.6-11.2) H 09/25/16 05:00 INR 1.11 (0.92-1.08) H 09/25/16 05:00 APTT 32.3 SECONDS (23.3-32.5) D 09/25/16 05:00 - Constitutional Appears: Well, Non-toxic, No Acute Distress - Neurological Exam Neurological Exam: Oriented x3 - Psychiatric Exam Psychiatric exam: Normal Affect, Normal Mood - Additional Findings Additional findings: Bandage is c/d/i to the left foot, neurovascular status intact, minimal edema Assessment and Plan - Assessment and Plan (Free Text) Assessment: 46 year old female 3 weeks s/p left foot bunionectomy, with L side DVT, PE Plan: Patient seen and evaluated, d/w attending Dr. Lopes Patients dressing left intact at this time Sutures will be removed at next dressing change Left foot x-rays ordered Patient to wear surgical shoe whenever ambulating, even for transfers Podiatry will continue to follow
--- NOTE | 2016-09-28 14:20 | CP.PCM.PN ---
Subjective - Date & Time of Evaluation Date of Evaluation: 09/28/16 Time of Evaluation: 14:20 - Subjective Subjective: patient has no chest pain or dyspnea Objective - Vital Signs/Intake and Output Vital Signs (last 24 hours): Temp Pulse Resp BP Pulse Ox 97.6 F 62 18 121/77 98 09/28/16 12:19 09/28/16 12:19 09/28/16 12:19 09/28/16 12:19 09/28/16 12:19 Intake and Output: 09/28/16 09/28/16 06:59 18:59 Intake Total 180 Output Total 200 Balance -20 - Medications Medications: Current Medications Al Hydrox/Mg Hydrox/Simethicone (Maalox Plus 30 Ml) 30 ml PO Q6 PRN PRN Reason: Indigestion / Heartburn Last Admin: 09/24/16 21:21 Dose: 30 ml Albuterol/Ipratropium (Duoneb 3 Mg/0.5 Mg (3 Ml) Ud) 3 ml INH RQ6 [facility] Last Admin: 09/28/16 13:34 Dose: 3 ml Apixaban (Eliquis) 10 mg PO BID YESY PRN Reason: Protocol Last Admin: 09/28/16 08:44 Dose: 10 mg Budesonide (Pulmicort Respules) 0.5 mg IH RBID [facility] Last Admin: 09/28/16 08:01 Dose: 0.5 mg Diazepam (Valium) 5 mg PO HS PRN PRN Reason: Anxiety Last Admin: 09/25/16 22:07 Dose: 5 mg Docusate Sodium (Colace) 100 mg PO BID [facility] Last Admin: 09/28/16 08:43 Dose: 100 mg Ibuprofen (Motrin Tab) 800 mg PO Q8 PRN PRN Reason: Pain, moderate (4-7) Last Admin: 09/27/16 20:31 Dose: 800 mg Insulin Detemir (Levemir) 20 units SC HS [facility] Insulin Human Lispro (Humalog) 4 units SC AC [facility] Last Admin: 09/28/16 12:08 Dose: 4 units Insulin Human Lispro (Humalog) 0 units SC ACHS [facility] PRN Reason: Protocol Last Admin: 09/28/16 12:05 Dose: Not Given Pantoprazole Sodium (Protonix Ec Tab) 40 mg PO DAILY [facility] Last Admin: 09/28/16 08:45 Dose: 40 mg Zolpidem Tartrate (Ambien) 5 mg PO HS PRN PRN Reason: Sleep Last Admin: 09/27/16 00:31 Dose: 5 mg - Labs Labs: 09/28/16 06:30 09/28/16 06:30 PT 11.5 SECONDS (9.6-11.2) H 09/25/16 05:00 INR 1.11 (0.92-1.08) H 09/25/16 05:00 APTT 32.3 SECONDS (23.3-32.5) D 09/25/16 05:00 - Constitutional Appears: Non-toxic - Head Exam Head Exam: NORMAL INSPECTION - Eye Exam Eye Exam: Normal appearance - ENT Exam ENT Exam: Mucous Membranes Moist - Neck Exam Neck Exam: Full ROM - Respiratory Exam Respiratory Exam: NORMAL BREATHING PATTERN - Cardiovascular Exam Cardiovascular Exam: REGULAR RHYTHM - GI/Abdominal Exam GI & Abdominal Exam: Normal Bowel Sounds - Rectal Exam Rectal Exam: Deferred - Extremities Exam Extremities Exam: absent: Pedal Edema - Back Exam Back Exam: NORMAL INSPECTION - Neurological Exam Neurological Exam: Alert - Psychiatric Exam Psychiatric exam: Normal Affect - Skin Skin Exam: Normal Color Assessment and Plan (1) HTN (hypertension) Assessment & Plan: medical therapy Status: Acute (2) Bilateral pulmonary embolism Assessment & Plan: on Eliquis 10 mg BID x 3 weeks, then Eliquis 5 mg BID Status: Acute (3) DVT (deep venous thrombosis) Assessment & Plan: as above Status: Acute
--- NOTE | 2016-09-28 15:36 | CP.PCM.PN ---
Subjective - Date & Time of Evaluation Date of Evaluation: 09/28/16 Time of Evaluation: 12:10 - Subjective Subjective: F/U PE B/L Pt with no SOB, no chest congestion, minimal GRANT walking to the bathroom. Objective - Vital Signs/Intake and Output Vital Signs (last 24 hours): Temp Pulse Resp BP Pulse Ox 97.6 F 62 18 121/77 98 09/28/16 12:19 09/28/16 12:19 09/28/16 12:19 09/28/16 12:19 09/28/16 12:19 Intake and Output: 09/28/16 09/28/16 06:59 18:59 Intake Total 180 Output Total 200 Balance -20 - Medications Medications: Current Medications Al Hydrox/Mg Hydrox/Simethicone (Maalox Plus 30 Ml) 30 ml PO Q6 PRN PRN Reason: Indigestion / Heartburn Last Admin: 09/24/16 21:21 Dose: 30 ml Albuterol/Ipratropium (Duoneb 3 Mg/0.5 Mg (3 Ml) Ud) 3 ml INH RQ6 [facility] Last Admin: 09/28/16 13:34 Dose: 3 ml Apixaban (Eliquis) 10 mg PO BID YESY PRN Reason: Protocol Last Admin: 09/28/16 08:44 Dose: 10 mg Budesonide (Pulmicort Respules) 0.5 mg IH RBID [facility] Last Admin: 09/28/16 08:01 Dose: 0.5 mg Diazepam (Valium) 5 mg PO HS PRN PRN Reason: Anxiety Last Admin: 09/25/16 22:07 Dose: 5 mg Docusate Sodium (Colace) 100 mg PO BID [facility] Last Admin: 09/28/16 08:43 Dose: 100 mg Ibuprofen (Motrin Tab) 800 mg PO Q8 PRN PRN Reason: Pain, moderate (4-7) Last Admin: 09/27/16 20:31 Dose: 800 mg Insulin Detemir (Levemir) 20 units SC HS [facility] Insulin Human Lispro (Humalog) 4 units SC AC [facility] Last Admin: 09/28/16 12:08 Dose: 4 units Insulin Human Lispro (Humalog) 0 units SC ACHS [facility] PRN Reason: Protocol Last Admin: 09/28/16 12:05 Dose: Not Given Pantoprazole Sodium (Protonix Ec Tab) 40 mg PO DAILY [facility] Last Admin: 09/28/16 08:45 Dose: 40 mg Zolpidem Tartrate (Ambien) 5 mg PO HS PRN PRN Reason: Sleep Last Admin: 09/27/16 00:31 Dose: 5 mg - Labs Labs: 09/28/16 06:30 09/28/16 06:30 PT 11.5 SECONDS (9.6-11.2) H 09/25/16 05:00 INR 1.11 (0.92-1.08) H 09/25/16 05:00 APTT 32.3 SECONDS (23.3-32.5) D 09/25/16 05:00 - Constitutional Appears: No Acute Distress - Head Exam Head Exam: NORMAL INSPECTION - Eye Exam Eye Exam: PERRL - ENT Exam ENT Exam: Normal Oropharynx - Neck Exam Neck Exam: Normal Inspection - Respiratory Exam Respiratory Exam: NORMAL BREATHING PATTERN - Cardiovascular Exam Cardiovascular Exam: REGULAR RHYTHM - GI/Abdominal Exam GI & Abdominal Exam: Soft, Normal Bowel Sounds - Extremities Exam Additional comments: L foot dressing in place - Neurological Exam Neurological Exam: Alert, Oriented x3. absent: Motor Sensory Deficit - Psychiatric Exam Psychiatric exam: Normal Mood - Skin Skin Exam: Warm Assessment and Plan (1) Bilateral pulmonary embolism Status: Acute (2) Deep venous thrombosis of left popliteal vein Status: Acute (3) S/P bunionectomy Status: Acute (4) Asthma Status: Chronic - Assessment and Plan (Free Text) Plan: Continue Eliquis and rest of Tx.
--- NOTE | 2016-09-28 15:41 | RAD ---
PROCEDURE: Left Foot Radiographs. HISTORY: s/p left foot bunionectomy COMPARISON: None. FINDINGS: BONES: Orthopedic hardware involving the proximal aspect of the 1st metatarsal which has undergone distal osteotomy. JOINTS: Normal. SOFT TISSUES: Normal. OTHER FINDINGS: None. IMPRESSION: Postsurgical changes as above.
[2016-09-28 23:57] VITALS: RESP 20
[2016-09-29] MEDS: Albuterol-Ipratrop 3 mg / 0.5 (3 ml) UD INH SCH ×3 (00:59→14:30)
[2016-09-29 06:47] LABS: HEMATOCRIT 36.4 % (34.0-47.0); MEAN CORPUSCULAR HEMOGLOBIN 28.4 pg (27.0-31.0); RED CELL DISTRIBUTION WIDTH 13.1 % (11.5-14.5); WHITE BLOOD COUNT 7.4 K/uL (4.8-10.8)
[2016-09-29 06:57] LABS: ALB/GLOB RATIO 1.1 (1.0-2.1); ALKALINE PHOSPHATASE 97 U/L (38-126); ALT/SGPT 67 U/L (9-52); AST/SGOT 44 U/L (14-36); BILIRUBIN,TOTAL 0.3 mg/dl (0.2-1.3); BLOOD UREA NITROGEN 12 mg/dl (7-17); CALCIUM 9.8 mg/dL (8.4-10.2); CARBON DIOXIDE 29 mmol/L (22-30); CHLORIDE 103 mmol/L (98-107); GFR AFRICAN-AMERICAN > 60; GLUCOSE,RANDOM 196 mg/dL (65-105); SODIUM 142 mmol/l (132-148); TOTAL PROTEIN 7.4 G/DL (6.3-8.2)
[2016-09-29] MEDS: Insulin Lispro (humaLOG) 100 Units/ml Inj SC SCH ×4 (07:03→13:06)
[2016-09-29] MEDS: Budesonide 0.5 mg/2 ml Inhal Susp UD IH SCH (07:30)
[2016-09-29 07:45] LABS: B2 GLYCOPROTEIN I AB(IGA) <9 SAU (<=20); B2 GLYCOPROTEIN I AB(IGG) <9 SGU (<=20); B2 GLYCOPROTEIN I AB(IGM) <9 SMU (<=20)
[2016-09-29 08:03] VITALS: O2SAT 98
--- NOTE | 2016-09-29 08:28 | PN ---
DATE: 09/27/2016 In ICU ____. This is a 46-year-old female with progressive shortness of breath, evaluated to have bilateral pulmon jessika embolism with underlying ____ and is now being followed closely for ____. Her glucose values tod ay have ranged from 197-199 mg/dL. Her latest chemistries showed a BUN of 12, sodium 141, potassium 4.2, chloride 103, CO2 29 and glucose 197 and creatine 0.8. ____ A1c is 10.8% indicative of ____ meche n prior to this admission. ASSESSMENT: This patient is a 46-year-old female with uncontrolled and decompensated type 2 insulin -requiring diabetes previously on oral hypoglycemic therapy, now presenting here with acute pulmonary embolism, undergoing anticoagulation therapy at this time and is being followed closely for metaboli c management. PLAN OF MANAGEMENT: As discussed with the patient and staff, we will modify her basal and bolus insu hola regimen to optimize metabolic control. We will increase her basal insulin with Levemir to be giv en at 14 units subQ at bedtime daily to start tonight. We will also continue the Humalog given as 4 units subQ t.i.d. before meals as ordered. We will titrate incrementally as indicated to optimize me tabolic control. We will also modify the coverage scale to obviate hypoglycemia and detailed orders have been given. We will follow. Radha Sanon MD cc: [phone] TT: 09/27/2016 10:51:30 Confirmation # [id number] Dictation # [id number] tn
[2016-09-29] MEDS: Pantoprazole 40 mg EC Tab PO SCH (08:34)
--- NOTE | 2016-09-29 09:27 | PN ---
DATE: 09/29/2016 The patient seen and examined. Interim events noted. Consults noted, appreciated. Cardiology and p ulmonary followup and intervention noted and appreciated. The patient remains in progressive care un it on telemetry. The patient feels okay. No chest pain, no shortness of breath. PHYSICAL EXAMINATION: GENERAL: The patient is in no acute distress. VITAL SIGNS: Stable. HEART: S1, S2 normal, regular. LUNGS: Good bilateral air entry. ABDOMEN: Soft, nontender. EXTREMITIES: No edema, no calf swelling, no tenderness, no acute ischemia. CENTRAL NERVOUS SYSTEM: Essentially unchanged. DIAGNOSTIC DATA: Available reviewed. Overall, patient's general medical condition is stable. PLAN: As ordered. The patient will be discharged home today. The patient will follow up with [facility] physician in . Paul Moreno MD cc: [phone] TT: 09/29/2016 09:25:58 Confirmation # [id number] Dictation # [id number] en
[2016-09-29 12:40] VITALS: BP 112/75; PULSE 69; TEMP 96.9
--- NOTE | 2016-09-29 13:17 | CP.PCM.PN ---
Subjective - Date & Time of Evaluation Date of Evaluation: 09/29/16 Time of Evaluation: 11:30 - Subjective Subjective: PE B/L Pt breathing better, no SOB, no GRANT, no chest congestion. Objective - Vital Signs/Intake and Output Vital Signs (last 24 hours): Temp Pulse Resp BP Pulse Ox 96.9 F L 69 20 112/75 98 09/29/16 12:39 09/29/16 12:39 09/29/16 12:39 09/29/16 12:39 09/29/16 12:39 Intake and Output: 09/29/16 09/29/16 06:59 18:59 Intake Total 250 Balance 250 - Medications Medications: Current Medications Al Hydrox/Mg Hydrox/Simethicone (Maalox Plus 30 Ml) 30 ml PO Q6 PRN PRN Reason: Indigestion / Heartburn Last Admin: 09/24/16 21:21 Dose: 30 ml Albuterol/Ipratropium (Duoneb 3 Mg/0.5 Mg (3 Ml) Ud) 3 ml INH RQ6 [facility] Last Admin: 09/29/16 07:30 Dose: 3 ml Apixaban (Eliquis) 10 mg PO BID [facility] PRN Reason: Protocol Last Admin: 09/29/16 08:34 Dose: 10 mg Budesonide (Pulmicort Respules) 0.5 mg IH RBID [facility] Last Admin: 09/29/16 07:30 Dose: 0.5 mg Diazepam (Valium) 5 mg PO HS PRN PRN Reason: Anxiety Last Admin: 09/25/16 22:07 Dose: 5 mg Docusate Sodium (Colace) 100 mg PO BID [facility] Last Admin: 09/29/16 08:34 Dose: 100 mg Ibuprofen (Motrin Tab) 800 mg PO Q8 PRN PRN Reason: Pain, moderate (4-7) Last Admin: 09/29/16 08:38 Dose: 800 mg Insulin Detemir (Levemir) 20 units SC HS [facility] Last Admin: 09/28/16 22:04 Dose: 20 units Insulin Human Lispro (Humalog) 4 units SC AC [facility] Last Admin: 09/29/16 13:06 Dose: 4 units Insulin Human Lispro (Humalog) 0 units SC ACHS [facility] PRN Reason: Protocol Last Admin: 09/29/16 13:06 Dose: 2 unit Pantoprazole Sodium (Protonix Ec Tab) 40 mg PO DAILY [facility] Last Admin: 09/29/16 08:34 Dose: 40 mg Zolpidem Tartrate (Ambien) 5 mg PO HS PRN PRN Reason: Sleep Last Admin: 09/27/16 00:31 Dose: 5 mg - Labs Labs: 09/29/16 06:00 09/29/16 06:00 PT 11.5 SECONDS (9.6-11.2) H 09/25/16 05:00 INR 1.11 (0.92-1.08) H 09/25/16 05:00 APTT 32.3 SECONDS (23.3-32.5) D 09/25/16 05:00 - Constitutional Appears: No Acute Distress - Head Exam Head Exam: NORMAL INSPECTION - Eye Exam Eye Exam: PERRL - ENT Exam ENT Exam: Normal Oropharynx - Neck Exam Neck Exam: Normal Inspection - Respiratory Exam Respiratory Exam: NORMAL BREATHING PATTERN - Cardiovascular Exam Cardiovascular Exam: REGULAR RHYTHM - GI/Abdominal Exam GI & Abdominal Exam: Soft, Normal Bowel Sounds - Extremities Exam Additional comments: L foot dressing in place - Neurological Exam Neurological Exam: Alert, Oriented x3. absent: Motor Sensory Deficit - Psychiatric Exam Psychiatric exam: Normal Mood - Skin Skin Exam: Warm Assessment and Plan (1) Bilateral pulmonary embolism Status: Acute (2) Deep venous thrombosis of left popliteal vein Status: Acute (3) S/P bunionectomy Status: Acute (4) Asthma Status: Chronic - Assessment and Plan (Free Text) Plan: Pulmonary cleared to be discharged. Continue Eliquis F/U PMD as out Pt.
--- NOTE | 2016-09-29 16:03 | PN ---
DATE: 09/29/2016 ROOM: 408 SUBJECTIVE: This is a 46-year-old female with recent uncontrolled type 2 insulin-requiring diabetes, now being followed closely for metabolic management. She is also undergoing cardiac and vascular wo rkup for recent acute pulmonary embolism and is now being followed closely for metabolic management. Her glycemic levels are fluctuating, but much improved at this time and the latest glucose levels scruggs ve ranged from 197 to 215 and 305 mg/dL. Her latest chemistries include a BUN of 12, sodium 142, pot assium 4.0, chloride 103, CO2 29, glucose 196 and creatinine 0.8. Her hemoglobin A1c was reported as 10.3%, which is quite elevated and indicative of suboptimal metabolic control of her diabetic condit ion. So at this time, we will modify once again her basal and bolus insulin regimen and increase the Levemir to 22 units subQ at bedtime daily to start tonight. We will also increase the Humalog to 6 units subQ t.i.d. before meals to start at dinnertime today as ordered. We will titrate incrementall y as indicated to optimize metabolic control. We will follow. Radha Sanon MD cc: [id number] TT: 09/29/2016 16:03:03 Confirmation # [id number] Dictation # [id number] ln
--- NOTE | 2016-09-29 16:18 | CP.PCM.PN ---
Subjective - Date & Time of Evaluation Date of Evaluation: 09/29/16 Time of Evaluation: 16:16 - Subjective Subjective: 46 y/o Patient seen and evaluated at bedside, NAD. Bandage is clean dry and intact to the left foot. Patient has surgical shoe at bedside to use for transfers to and from the commode. She states that she is feeling well, pain is mild and intermittent. Denies n/v/f/c. Objective - Vital Signs/Intake and Output Vital Signs (last 24 hours): Temp Pulse Resp BP Pulse Ox 96.9 F L 69 20 112/75 98 09/29/16 12:39 09/29/16 12:39 09/29/16 12:39 09/29/16 12:39 09/29/16 12:39 Intake and Output: 09/29/16 09/29/16 06:59 18:59 Intake Total 250 Balance 250 - Medications Medications: Current Medications Al Hydrox/Mg Hydrox/Simethicone (Maalox Plus 30 Ml) 30 ml PO Q6 PRN PRN Reason: Indigestion / Heartburn Last Admin: 09/24/16 21:21 Dose: 30 ml Albuterol/Ipratropium (Duoneb 3 Mg/0.5 Mg (3 Ml) Ud) 3 ml INH RQ6 YESY Last Admin: 09/29/16 14:30 Dose: 3 ml Apixaban (Eliquis) 10 mg PO BID YESY PRN Reason: Protocol Last Admin: 09/29/16 16:12 Dose: 10 mg Budesonide (Pulmicort Respules) 0.5 mg IH RBID [facility] Last Admin: 09/29/16 07:30 Dose: 0.5 mg Diazepam (Valium) 5 mg PO HS PRN PRN Reason: Anxiety Last Admin: 09/25/16 22:07 Dose: 5 mg Docusate Sodium (Colace) 100 mg PO BID [facility] Last Admin: 09/29/16 16:07 Dose: 100 mg Ibuprofen (Motrin Tab) 800 mg PO Q8 PRN PRN Reason: Pain, moderate (4-7) Last Admin: 09/29/16 08:38 Dose: 800 mg Insulin Detemir (Levemir) 22 units SC HS YESY Insulin Human Lispro (Humalog) 0 units SC ACHS YESY PRN Reason: Protocol Last Admin: 09/29/16 13:06 Dose: 2 unit Insulin Human Lispro (Humalog) 6 units SC AC YESY Pantoprazole Sodium (Protonix Ec Tab) 40 mg PO DAILY YESY Last Admin: 09/29/16 08:34 Dose: 40 mg Zolpidem Tartrate (Ambien) 5 mg PO HS PRN PRN Reason: Sleep Last Admin: 09/27/16 00:31 Dose: 5 mg - Labs Labs: 09/29/16 06:00 09/29/16 06:00 PT 11.5 SECONDS (9.6-11.2) H 09/25/16 05:00 INR 1.11 (0.92-1.08) H 09/25/16 05:00 APTT 32.3 SECONDS (23.3-32.5) D 09/25/16 05:00 - Constitutional Appears: Well, Non-toxic, No Acute Distress - Extremities Exam Additional comments: left foot focused: Vasc; DP/PT 2/4, TG wnl, CFT < 3 sec to all digits neuro: grossly intact derm: no edema, no erythema, surgical incision site intact, no dehiscence, sutures intact, no ascending cellulitis, no acute clinical signs of infection ortho: no pain on palpation along incision site - Neurological Exam Neurological Exam: Alert, Awake, Oriented x3 - Psychiatric Exam Psychiatric exam: Normal Affect, Normal Mood Assessment and Plan - Assessment and Plan (Free Text) Assessment: 46 year old female 3 weeks s/p left foot bunionectomy, with L side DVT, PE Plan: Patient seen and evaluated, d/w attending Dr. Beltrán Patients dressing left intact at this time removed sutures from left foot x rays show plate and screws of left foot s/p surgery in good alignment Patient to wear surgical shoe whenever ambulating, even for transfers patient to follow up with Dr. Beltrán as outpatient Podiatry will continue to follow
[2016-09-29] MEDS ORDERED: Insulin Lispro (humaLOG) 100 Units/ml Inj SC SCH (16:30)
[2016-09-29] MEDS ORDERED: Insulin Detemir 100 Units/ml Inj SC SCH (22:00)
--- NOTE | 2016-09-30 08:16 | CON ---
DATE: 09/26/2016 This is a 46-year-old female with sudden onset of severe worsening shortness of breath and ____ _ chest pain and evaluated bilateral pulmonary embolism an anticoagulation was give n evaluation because of a recent hyperglycemic with a markedly elevated A1c history of bronchial asthma stable diabetes family as mentioned above chest pa in with progressive shortness of breath, initially on exertion and then at rest with paroxysmal noctu rnal dyspnea. Also, dyspepsia abdominal pain . HEENT: Head is normocephalic. Eyes anicteric with pink conjunctivae. . LUNGS: Clear to ausculta tion. ABDOMEN: soft with positive bowel sounds. EXTREMITIES: . LABORATORY 140, potassium Radha Sanon MD cc: [phone] TT: 09/26/2016 16:43:45 Confirmation # [id number] Dictation # [id number] ln
--- NOTE | 2016-09-30 08:17 | CON ---
DATE: 09/26/2016 ADDENDUM This is a 46-year-old female PLAN OF MANAGEMENT: discussed with the patient at bedside. We will switch her over to a more physiologic basal and bolus insulin drug combination 20 units subQ at bedtime daily as ord ered. We will also add Humalog given as 4 units subQ t.i.d. before meals as given. We will modify t he coverage scale to a low dose algorithm using inpatient diabetic management. She was switched over to oral hypoglycemic therapy upon discharge. for tighter metabolic control potenti al complications of retinopathy, polyneuropathy and nephropathy. We will obtain serial chemistry technologist chastity and supplement as needed. Radha Sanon MD cc: [id number] TT: 09/26/2016 16:50:26 Confirmation # [id number] Dictation # [id number] ln
[2016-09-30 14:16] LABS: CARDIOLIPIN AB (IGA) <11 APL (<=11); PHOSPHATIDYLSERINE AB IGA <20 U/mL (<20); PHOSPHATIDYLSERINE AB IGM <25 U/mL (<25)
== END 2016-09-29 16:45 | disposition home or self-care (01) | DRG 299 ==
LOC: EDSEX 14:32 → H.ER 14:32 → H.ERHOLD 16:36 → H.ICU/CCU 18:05 → H.TEL 09-27 21:47
PROVIDERS: ADMIT Internal Medicine; ATTEND Internal Medicine
DX: T81.718A Complication of other artery following a procedure, not elsewhere classified, initial encounter (principal); I26.92 Saddle embolus of pulmonary artery without acute cor pulmonale; I82.432 Acute embolism and thrombosis of left popliteal vein; T81.72XA Complication of vein following a procedure, not elsewhere classified, initial encounter; E11.649 Type 2 diabetes mellitus with hypoglycemia without coma; I10 Essential (primary) hypertension; E11.65 Type 2 diabetes mellitus with hyperglycemia; E78.00 Pure hypercholesterolemia, unspecified; J44.9 Chronic obstructive pulmonary disease, unspecified; J45.909 Unspecified asthma, uncomplicated; M21.612 Bunion of left foot; Z79.01 Long term (current) use of anticoagulants; Z79.4 Long term (current) use of insulin; Z86.718 Personal history of other venous thrombosis and embolism; Z91.14 Patient's other noncompliance with medication regimen; Z91.19 Patient's noncompliance with other medical treatment and regimen; M79.671 Pain in right foot; R00.2 Palpitations